=== PATIENT | female | born 2000 | race Caucasian/White ===

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

== ENCOUNTER 2020-01-22 22:37 | Emergency (ER) | payer OTHER, SELFPAY ==
[2020-01-22 22:49] VITALS: BP 146/95; PULSE 86; RESP 18; O2SAT 98; BMI 39.4
--- NOTE | 2020-01-22 23:03 | CT_ITS ---
PROCEDURE: CT CERVICAL SPINE WO CON CLINICAL INDICATION: neck/shoulder pain Neck and shoulder pain COMPARISON: No exams were available for comparison TECHNIQUE: Axial images obtained with sagittal and coronal reformats. All CT scans at the facility use one or more dose reduction, viz: automated exposure control, ma/kV adjustment per patient size (including targeted exams where dose is matched to indication, i.e. head), or iterative reconstruction technique. Axial spiral CT scanning performed of the cervical spine beginning at the base of the skull and continuing to the upper T-spine. 3-D multiplanar reconstruction with 3-D manipulation of volumetric data set in image rendering was completed by the radiologist and/or technologist with the supervision of the radiologist on independent workstation. FINDINGS: No fracture nor subluxation is evident. Normal prevertebral soft tissues. Facets, neural foramen and vertebral bodies intact and unremarkable. Normal C1/C2 relationships. Apices of lungs are clear with no acute findings.There is straightening/reversal of the normal lordosis which may be due to patient positioning or muscle spasm.. Scattered small nodes are present in the neck IMPRESSION: Cervical spine intact with no fracture nor subluxation. Nonspecific straightening/slight reversal cervical lordosis Dictated by: Óscar Hernandez MD 01/23/2020 06:00 Óscar Hernandez MD in [place] 01/23/2020 06:00
--- NOTE | 2020-01-22 23:18 | HMH.EDGENADL ---
ED Disposition Clinical Impression: Trapezius strain Qualifiers: Encounter type: initial encounter Laterality: unspecified laterality Qualified Code(s): S46.819A - Strain of other muscles, fascia and tendons at shoulder and upper arm level, unspecified arm, initial encounter Disposition: Home, Self-Care Condition on Discharge: Good Instructions: DI for Acute Pain -- Adult Additional Instructions: use meds and call pcp about therapy Prescriptions: Meloxicam [Mobic 15 mg tab] 15 mg PO DAILY #7 tab Transmission Status: Pending to [facility] Tizanidine HCl [Zanaflex 4mg tab] 4 mg PO TID #15 tab Transmission Status: Pending to [facility] Referrals: Mike Block APRN [Primary Care Provider] - - Critical Care Critical Care Time: No Attestation: On 01/22/20, the high probability of a clinically significant, sudden or life threatening deterioration of the following system(s) required my full and direct attention, intervention and personal management. The time I documented below is in addition to time spent performing reported procedures but includes the following listed in this critical care notation. Medical Decision Making - Medical Records Medical records reviewed: Yes: I reviewed the patient's medical records. - Dariusz Inquiry Pt receiving controlled substance: No Vital Signs: 01/22/20 22:49 01/22/20 23:27 Pulse Rate [Right Brachial] 86 80 Respiratory Rate 18 18 Blood Pressure [Right Arm] 146/95 H 140/80 Blood Pressure Mean [Right Arm] 112 100 Blood Pressure Source [Right Arm] Automatic Cuff Automatic Cuff Blood Pressure Position [Right Arm] Sitting Sitting 02 Sat by Pulse Oximetry 98 98 Oxygen Delivery Method Room Air Room Air - Lab Data Lab results reviewed: Yes: I reviewed the patient's lab results. Orders (Tests/Meds): ORDERS Category Date Time Status CT cervical spine wo con Stat Cat Scan 01/22/20 23:03 Taken - CT Data CT Scan: C-Spine Time Received: 23:[address] Reviewed: Yes: I have viewed the radiologist's interpretation Preliminary Findings: No Fracture Seen General Adult HPI - General Chief complaint: PAIN Stated complaint: shoulder, neck pain Time Seen by Provider: 01/22/20 23:18 Mode of Arrival: Ambulatory Source of Information: Patient, Medical Record Limitations: No Limitations Description of Symptoms (Recalled from ER Triage Doc. by RN): Patient reports pain that starts from the bottom of her shoulder blades and goes up into her neck. Patient reports the pain started about a week ago and no known injuries. Had not consulted pcp. - History of Present Illness HPI narrative: over the last week has ongoing pain in trapezius area with no fever/rash or trauma - no ant chest pain Onset (ago): day(s) Location: back Severity: moderate Quality: dull, constant Consistency: constant Associated symptoms: denies other symptoms Treatments prior to arrival: none - Related Data Previous Rx's Medication Instructions Recorded ferrous sulfate 325 mg (65 mg 325 mg PO DAILY #90 tab 09/18/19 iron) tablet hydrochlorothiazide 12.5 mg tablet 12.5 mg PO DAILY #90 tab 09/18/19 quetiapine 50 mg tablet 50 mg PO QHS #30 tab 12/25/19 Meloxicam [Mobic 15 mg tab] 15 mg PO DAILY #7 tab 01/22/20 Tizanidine HCl [Zanaflex 4mg 4 mg PO TID #15 tab 01/22/20 tab] Allergies Allergy/AdvReac Type Severity Reaction Status Date / Time No Known Allergies Allergy Verified 11/02/19 09:[address] [facility] History - Hepatitis A Screen Drug use history?: No High risk sexual behaviors?: No History of sexually transmitted infection?: No Currently employed?: No Childcare worker?: No Do you have indoor plumbing?: Yes Do you have electricity?: Yes Attestation statement:: This patient has been screened for Hepatitis A risk factors. I have reviewed the patient's past medical history: Yes Medical History: Reports:: Hypertension Other Medical History: Reports: Anem
[2020-01-22 23:27] VITALS: BP 140/80; PULSE 80; RESP 18; O2SAT 98
[2020-01-23 00:02] VITALS: BP 142/87; PULSE 78; RESP 17; TEMP 36.6; O2SAT 99
== END 2020-01-23 00:26 | disposition home or self-care (01) ==
PROVIDERS: Emergency Provider Emergency Medicine; PCP Nurse Practitioner Family
DX: S46.811A Strain of other muscles, fascia and tendons at shoulder and upper arm level, right arm, initial encounter (principal); S46.812A Strain of other muscles, fascia and tendons at shoulder and upper arm level, left arm, initial encounter; F17.210 Nicotine dependence, cigarettes, uncomplicated
CPT/HCPCS: 72125; 99282

== ENCOUNTER → 2020-02-21 14:13 | Outpatient (CLI) | payer OTHER, SELFPAY ==
[2020-02-21 15:00] LABS: Basophils % 0.6 % (0.1-2.0); Eosinophils # 0.2 K/mm3 (0.0-0.4); Eosinophils % 2.7 % (0.1-12.0); Hematocrit 40.7 % (37.0-47.0); Hemoglobin 14.6 g/dL (12.2-16.2); Lymphocytes # 2.2 K/mm3 (0.7-4.5); Lymphocytes % 33.5 % (10-50); Mean Corpuscular Hemoglobin 30.7 pg (27.0-31.2); Mean Corpuscular Volume 85.3 fl (81-99); Mean Platelet Volume 9.8 fl (7.4-10.4); Monocytes # 0.4 K/mm3 (0.1-1.0); Monocytes % 6.3 % (1.7-9.3); Neutrophils # 3.8 K/mm3 (1.8-7.8); Platelet Count 194 K/mm3 (142-424); Red Blood Count 4.77 M/mm3 (4.20-5.40); Red Cell Distribution Width 12.9 % (11.5-17.5); White Blood Count 6.7 K/mm3 (4.5-13.0)
[2020-02-21 15:08] LABS: Iron 80 ug/dL (37-170)
[2020-02-21 15:17] LABS: Total Iron Binding Capacity 341 ug/dL (265-497)
[2020-02-21 15:44] LABS: Ferritin 40.3 ng/ml (6.24-137)
== END ==
PROVIDERS: Visit Provider Internal Medicine Medical Oncology
DX: D50.0 Iron deficiency anemia secondary to blood loss (chronic) (principal)
CPT/HCPCS: 36415; 82728; 83540; 83550; 85025

== ENCOUNTER 2020-03-14 14:53 | Emergency (ER) | payer OTHER, SELFPAY ==
[2020-03-14 15:09] VITALS: BP 149/98; PULSE 76; RESP 20; TEMP 36.9; O2SAT 97; BMI 43.7
--- NOTE | 2020-03-14 15:13 | HMH.EDUTC ---
[facility] [place] Clinical Impression: Sinusitis Qualifiers: Sinusitis location: unspecified location Chronicity: unspecified Qualified Code(s): J32.9 - Chronic sinusitis, unspecified Disposition: Home, Self-Care Condition on Discharge: Good Instructions: Sore Throat, Sinusitis, Sinus Headache, DI for Sinusitis Additional Instructions: *Monitor Temp, Over the counter Motrin or Tylenol as directed/as needed Tylenol every 4 hours and Motrin every 6 hours (as long as your family doctor has told you that you can take it) for fever or pain. and straight to ER if unable to lower temp less than 101.0 after medication given *Warm salt water gargles may help to soothe the throat *Throat Lozenges *Warm fluids like tea with honey may help to soothe the throat *Sleep elevated *Humidifier/Vaporizer *Flonase 2 sprays in each nostril daily but be aware that it may take 2-3 days before you notice improvement Your throat swab was sent for culture. Those results are typically sent to your primary care. Be sure to follow up in 2-3 days with your family doctor/primary care physician if no improvement so they can review those result and treat if necessary. If you don?t have a primary care doctor, I recommend you get one but in the mean time, you will have to return to a walk in clinic Follow up IMMEDIATELY for new or worsening symptoms or no Noticeable improvement over the next 48-72 hours. 911 for difficulty breathing or swallowing Prescriptions: Amoxicillin/Potassium Clav [Augmentin 875-125 Tablet] 1 tab PO Q12H 7 Days #14 tab Transmission Status: Received by [facility] Fluticasone Propionate [Flonase 50mcg nasal spray 16gm] 1 - 2 spr NS DAILY #1 bottle Transmission Status: Received by [facility] Referrals: Augustine Lott MD [Primary Care Provider] - As needed Time of Disposition: 15:39 Medical Decision Making - Dariusz Inquiry Pt receiving controlled substance: No Dariusz was queried for this patient: No Vital Signs: 03/14/20 15:09 03/14/20 15:43 Temperature 98.4 F 98.4 F Temperature Source Oral Pulse Rate 76 Pulse Rate [Right Brachial] 76 Respiratory Rate 20 20 Blood Pressure 149/98 H Blood Pressure [Right Arm] 149/98 H Blood Pressure Mean [Right Arm] 115 Blood Pressure Source [Right Arm] Automatic Cuff Blood Pressure Position [Right Arm] Sitting 02 Sat by Pulse Oximetry 97 Oxygen Delivery Method Room Air - Lab Data Lab results reviewed: Yes: I reviewed the patient's lab results. [facility] [place] HPI - General Stated complaint: sinus infection Time Seen by Provider: 03/14/20 15:13 Mode of Arrival: Ambulatory Source of Information: Patient Limitations: No Limitations Description of Symptoms (Recalled from Triage Doc. by RN): PATIENT C/O NASAL CONGESTION AND SORE THROAT X 2 DAYS. DENIES FEVER OR ANY SICK CONTACTS HEENT Symptoms (Recalled from RN notes): No Resp Symptoms (Recalled from RN notes): No Skin Symptoms (Recalled from RN notes): No MS Symptoms (Recalled from RN notes): No Functional Status (Recalled from RN notes): WNL - History of Present Illness Provider Complaint: Patient states that she has been having sinus pain and pressure along with sore throat for about a week that has not improved States that today she was feeling worse so she came in to get checked Denies exposure to COVID - Related Data Home Medications Medication Instructions Recorded Confirmed Ferrous Sulfate 325 mg PO DAILY 03/14/20 03/14/20 Quetiapine Fumarate 50 mg PO QHS 03/14/20 03/14/20 hydroCHLOROthiazide 12.5 mg PO DAILY 03/14/20 03/14/20 [Hydrochlorothiazide 12.5mg Tab] Previous Rx's Medication Instructions Recorded Amoxicillin/Potassium Clav 1 tab PO Q12H 7 Days #14 tab 03/14/20 [Augmentin 875-125 Tablet] Fluticasone Propionate [Flonase 1 - 2 spr NS DAILY #1 bottle 03/14/20 50mcg nasal spray 16gm] Allergies Allergy/AdvReac Type Severity Reaction Status Date / Time No Known [place]
[2020-03-14 15:43] VITALS: BP 149/98; PULSE 76; RESP 20; TEMP 36.9; O2SAT 97
[2020-03-14 21:13] LABS: UTC Strep Screen (Rapid) Negative (Negative)
== END 2020-03-14 15:45 | disposition home or self-care (01) ==
PROVIDERS: Emergency Provider Nurse Practitioner; PCP Emergency Medicine
DX: J32.9 Chronic sinusitis, unspecified (principal); F17.210 Nicotine dependence, cigarettes, uncomplicated
CPT/HCPCS: 87880; 99201

== ENCOUNTER 2020-04-27 11:03 | Emergency (ER) | payer OTHER, SELFPAY ==
[2020-04-27 11:09] VITALS: BP 146/104; PULSE 93; RESP 17; TEMP 36.8; O2SAT 100; BMI 39.4
--- NOTE | 2020-04-27 11:23 | HMH.EDABDPAI ---
ED Disposition Clinical Impression: Abdominal pain Qualifiers: Abdominal location: left upper quadrant Qualified Code(s): R10.12 - Left upper quadrant pain Nausea and vomiting Qualifiers: Vomiting type: unspecified Vomiting Intractability: non-intractable Qualified Code(s): R11.2 - Nausea with vomiting, unspecified Disposition: Home, Self-Care Condition on Discharge: Good Instructions: DI for Acute Abdomen Prescriptions: Ondansetron [Zofran 4mg ODT] 4 mg PO Q6HP PRN #30 tab.rapdis PRN Reason: Nausea Transmission Status: Pending to [facility] Dicyclomine HCl [Bentyl 10mg capsule] 10 mg PO Q8HP PRN #30 cap PRN Reason: abdominal pain Transmission Status: Pending to [facility] Referrals: Augustine Lott MD [Primary Care Provider] - - Critical Care Critical Care Time: No Attestation: On 04/27/20, the high probability of a clinically significant, sudden or life threatening deterioration of the following system(s) required my full and direct attention, intervention and personal management. The time I documented below is in addition to time spent performing reported procedures but includes the following listed in this critical care notation. Medical Decision Making - Medical Records Medical records reviewed: Yes: I reviewed the patient's medical records. - Dariusz Inquiry Pt receiving controlled substance: No Vital Signs: 04/27/20 11:09 Temperature 98.2 F Temperature Source Oral Pulse Rate [Right Radial] 93 H Respiratory Rate 17 Blood Pressure [Right Arm] 146/104 H Blood Pressure Mean [Right Arm] 118 02 Sat by Pulse Oximetry 100 - Lab Data Lab results reviewed: Yes: I reviewed the patient's lab results. Lab Results 04/27/20 11:27: WBC 7.6, RBC 5.03, Hgb 14.5, Hct 42.7, MCV 85.0, MCH 28.9, MCHC 34.0, RDW 13.8, Plt Count 227, MPV 8.9, Neut % (Auto) 65.3, Lymph % (Auto) 27.6, [place] % (Auto) 4.1, Eos % (Auto) 1.8, Baso % (Auto) 1.1, Neut # (Auto) 5.0, Lymph # (Auto) 2.1, [place] # (Auto) 0.3, Eos # (Auto) 0.1, Baso # (Auto) 0.1 04/27/20 11:27: Sodium 139, Potassium 4.0, Chloride 100, Carbon Dioxide 29, Anion Gap 14.0, BUN 12, Creatinine 0.80, Estimated Creat Clear 186, Estimated GFR 92, Est GFR ( Amer) 112, Glucose 103 H, Calcium 10.0, Total Bilirubin 0.4, AST 27, ALT 22, Alkaline Phosphatase 138 H, Total Protein 8.1, Albumin 4.8, Globulin 3.3 H, Albumin/Globulin Ratio 1.5, Amylase 75, Lipase 75 04/27/20 11:27: Serum HCG, Qual Negative 04/27/20 12:38: Urine Color Yellow, Urine Appearance Clear, Urine pH 6.0, Ur Specific [place] >= 1.030, Urine Protein 1+, Urine Glucose (UA) Negative, Urine Ketones Negative, Urine Blood Negative, Urine Nitrate Negative, Urine Bilirubin Negative, Urine Urobilinogen 0.2, Ur Leukocyte Esterase Negative, Urine RBC Occasional, Urine WBC 3-5, Ur Squamous Epith Cells 3-5 04/27/20 12:38: Urine HCG, Qual Negative Result diagrams: 04/27/20 11:27 04/27/20 11:27 Orders (Tests/Meds): ED MEDICATIONS Generic Name Dose Route Start Last Admin Trade Name Freq PRN Reason Stop Dose Admin Sodium Chloride 1,000 mls @ 999 mls/hr 04/27/20 11:30 04/27/20 11:23 Sod Chlor 0.9% 1000ml Bag IV 04/27/20 12:30 999 mls/hr .Q1H1M SYBIL Administration Discontinued Medications Generic Name Dose Route Start Last Admin Trade Name Freq PRN Reason Stop Dose Admin Dicyclomine HCl 20 mg 04/27/20 11:23 04/27/20 11:25 Dicyclomine 20 Mg/2ml Vial IM 04/27/20 11:24 20 mg ONCE ONE Administration Iopamidol 75 ml 04/27/20 13:16 04/27/20 13:17 Iopamidol-370 (76%);100ml Bottle IV 04/27/20 13:17 75 ml ONCE ONE Administration Ketorolac Tromethamine 30 mg 04/27/20 11:23 04/27/20 11:25 Ketorolac 30mg/Ml Vial IV 04/27/20 11:24 30 mg ONCE ONE Administration Ondansetron HCl 4 mg 04/27/20 11:20 04/27/20 11:23 Ondansetron 4mg/2ml Vial IV 04/27/20 11:21 4 mg ONCE ONE Administration Sodium Chloride 10 ml 04/27/20 13:16 04/27/20 13:
[2020-04-27 11:38] LABS: Basophils # 0.1 K/mm3 (0-0.2); Basophils % 1.1 % (0.1-2.0); Eosinophils # 0.1 K/mm3 (0.0-0.4); Eosinophils % 1.8 % (0.1-12.0); Hematocrit 42.7 % (37.0-47.0); Hemoglobin 14.5 g/dL (12.2-16.2); Lymphocytes # 2.1 K/mm3 (0.7-4.5); Lymphocytes % 27.6 % (10-50); Mean Corpuscular Hemoglobin 28.9 pg (27.0-31.2); Mean Platelet Volume 8.9 fl (7.4-10.4); Monocytes # 0.3 K/mm3 (0.1-1.0); Monocytes % 4.1 % (1.7-9.3); Neutrophils % 65.3 % (37.0-80.0); Platelet Count 227 K/mm3 (142-424); Red Blood Count 5.03 M/mm3 (4.20-5.40); Red Cell Distribution Width 13.8 % (11.5-17.5); White Blood Count 7.6 K/mm3 (4.5-13.0)
[2020-04-27 11:42] LABS: Chloride 100 mmol/L (98-107); Sodium 139 mmol/L (136-145)
[2020-04-27 11:44] LABS: Amylase 75 U/L (30-110); Blood Urea Nitrogen 12 mg/dl (7-17); Creatinine Clearance Estimated 186 mL/min (50-200); Estimated Glomerular Filt Rate 92 ml/min (>60); GFR (African American) 112 ML/MIN (>60)
[2020-04-27 11:45] LABS: Alanine Aminotransferase 22 U/L (12-78); Albumin Level 4.8 g/dl (3.5-5.0); Albumin/Globulin Ratio 1.5 (1.1-1.8); Alkaline Phosphatase 138 U/L (38-126); Aspartate Amino Transferase 27 U/L (14-36); Bilirubin,Total 0.4 mg/dl (0.2-1.3); Carbon Dioxide 29 mmol/L (22.0-30.0); Globulin 3.3 g/dL (1.3-3.2); Glucose 103 mg/dl (74-100); Lipase 75 U/L (23-300); Total Protein,Serum 8.1 g/dl (6.3-8.2)
[2020-04-27 12:30] LABS: HCG Qualitative, Serum Negative (Negative)
--- NOTE | 2020-04-27 12:36 | CT_ITS ---
PROCEDURE: CT ABDOMEN PELVIS W CON CLINICAL INDICATION: LUQ pain COMPARISON: No exams were available for comparison TECHNIQUE: IV Contrast: 75ML OPTIRAY 350 Oral Contrast none given Axial images obtained with sagittal and coronal reformats. All CT scans at the facility use one or more dose reduction, viz: automated exposure control, ma/kV adjustment per patient size (including targeted exams where dose is matched to indication, i.e. head), or iterative reconstruction technique. FINDINGS: Lower thorax: The lower lung soares are clear and there is no pleural fluid. ABDOMEN: Liver: No masses or biliary dilatation. Gallbladder: Nondistended. No radio opaque stones. Pancreas: No masses or peripancreatic fluid collections. Spleen: Borderline splenomegaly with no focal lesions. Adrenals: unremarkable Kidneys/ureters: The kidneys are normal in size and show symmetrical function with both appearing normal. ABDOMEN & PELVIS: Stomach bowel: The stomach duodenal sweep and small bowel appear grossly normal. The appendix is normal in and there are no pericecal inflammatory changes. There is moderate stool and gas seen in the ascending and transverse colon. The descending and sigmoid colon are decompressed. The rectum is normal. Peritoneum: No abnormal fluid collections. No obvious inflammatory changes. No free air. Lymph nodes: No enlarged lymph nodes apparent. Vasculature: No evidence of abdominal aortic aneurysm. No retroperitoneal hemorrhage evident. Bones: No acute fracture PELVIS: The uterus is normal in size and in the midline. Reproductive: The urinary bladder is is partially decompressed but otherwise appears normal. There is no free fluid in the pelvis. Nondistended. No obvious stones or masses. Appendix: Not definitely visualized but there are no findings to suggest appendicitis. IMPRESSION: Mild or borderline splenomegaly, no acute intra-abdominal or pelvic pathology identified Dictated by: Dr. Dieter Loyd MD 04/28/2020 07:40 Dr. Dieter Loyd MD in [place] 04/28/2020 07:40
[2020-04-27 12:43] LABS: Microscopic, Urine URINE MICROSCOPIC (MICROSCOPIC)
[2020-04-27 12:45] LABS: Appearance,Urine CLEAR (Clear); Bilirubin,Urine Negative (Negative); Blood, Urine Negative (Negative); Color,Urine YELLOW (Yellow); Glucose,Urine (UA) Negative (Negative); Ketones,Urine Negative (Negative); Leukocyte Esterase,Urine Negative (Negative); Nitrate,Urine Negative (Negative); Protein,Urine 1+ (Negative); Specific Gravity, Urine >= 1.030 (1.005-1.030); Urobilinogen,Urine 0.2 EU/dl (0.2)
[2020-04-27 12:49] LABS: Urine Pregnancy, HCG Qual. Negative (Negative)
[2020-04-27 12:50] LABS: RBC,Urine Occasional #/hpf (0-3)
[2020-04-27 14:27] VITALS: BP 130/85; PULSE 85; RESP 15; TEMP 36.8; O2SAT 98
== END 2020-04-27 14:29 | disposition home or self-care (01) ==
PROVIDERS: Emergency Provider Emergency Medicine; PCP Emergency Medicine
DX: R10.12 Left upper quadrant pain (principal); R11.2 Nausea with vomiting, unspecified; I10 Essential (primary) hypertension; Z79.899 Other long term (current) drug therapy
CPT/HCPCS: 74177; 80053; 81001; 81025; 82150; 83690; 84703; 85025; 96365; 96372; 96375; 99283; J2405; Q9967

== ENCOUNTER → 2020-06-10 10:51 | Outpatient (CLI) | payer OTHER, SELFPAY ==
[2020-06-10 11:17] LABS: Basophils # 0.1 K/mm3 (0-0.2); Eosinophils # 0.2 K/mm3 (0.0-0.4); Eosinophils % 2.1 % (0.1-12.0); Hematocrit 43.3 % (37.0-47.0); Hemoglobin 14.7 g/dL (12.2-16.2); Lymphocytes # 2.8 K/mm3 (0.7-4.5); Lymphocytes % 36.1 % (10-50); Mean Corpuscular Hemoglobin 28.7 pg (27.0-31.2); Mean Corpuscular Volume 84.2 fl (81-99); Mean Platelet Volume 9.1 fl (7.4-10.4); Monocytes # 0.4 K/mm3 (0.1-1.0); Monocytes % 4.9 % (1.7-9.3); Neutrophils # 4.3 K/mm3 (1.8-7.8); Neutrophils % 55.8 % (37.0-80.0); Platelet Count 219 K/mm3 (142-424); Red Blood Count 5.14 M/mm3 (4.20-5.40); Red Cell Distribution Width 13.9 % (11.5-17.5); White Blood Count 7.7 K/mm3 (4.5-13.0)
[2020-06-10 12:13] LABS: Thyroid Stimulating Hormone 4.69 uIU/mL (0.465-4.68)
[2020-06-11 11:17] LABS: Progesterone 0.4 ng/mL (.)
== END ==
PROVIDERS: Visit Provider Obstetrics & Gynecology
DX: N92.6 Irregular menstruation, unspecified (principal); R09.89 Other specified symptoms and signs involving the circulatory and respiratory systems
CPT/HCPCS: 36415; 84144; 84443; 85025

== ENCOUNTER 2020-06-11 13:06 | Emergency (ER) | payer OTHER, SELFPAY ==
[2020-06-11 13:50] VITALS: BP 167/111; PULSE 77; RESP 20; TEMP 37.3; O2SAT 97; BMI 41.1
--- NOTE | 2020-06-11 14:16 | HMH.EDUTC ---
[facility] [place]: Strep [place] Disposition: Home, Self-Care Condition on Discharge: Good Instructions: Strep Throat (Alternative Therapy), DI for Strep Throat, Amoxicillin Additional Instructions: Monitor Temp, Over the counter Motrin or Tylenol as directed/as needed Tylenol every 4 hours and Motrin every 6 hours (as long as your family doctor has told you that you can take it) for fever or pain. and straight to ER if unable to lower temp less than 101.0 after medication given *Warm salt water gargles may help to soothe the throat *Throat Lozenges *Warm fluids like tea with honey may help to soothe the throat *Sleep elevated *Humidifier/Vaporizer *If you did not take Penicillin shot or was unable to, start taking antibiotic immediately and make sure that you take it for the FULL length of time although you should start to feel better in 24-48 hours *change toothbrush and toothpaste 24-48 hours after starting to take antibiotics so you do not reinfect yourself Monitor Temp. Tylenol and/or Ibuprofen as needed. ER if fever is no less than 101 despite alternating Tylenol and Ibuprofen * Encourage fluids, water, Gatorade, powerade, pedialyte if infant/toddler/or child *Cold fluids, popsicles and ice cream may feel good on his throat Follow up IMMEDIATELY for new or worsening symptoms or no Noticeable improvement over the next 48-72 hours. 911 for difficulty breathing or swallowing You were tested for today for COVID19 your test result should be back in the next 24-48 hours, you may call to the [facility] to see if your test results are back in the next 48 hours [phone] [facility] hours are 9am-9pm You was given a handout with instructions for Self Quarantine and Self isolation for while you wait on test results and what to do if they are positive If you are positive the Health Dept will be contacting you also Prescriptions: Amoxicillin [Amoxicillin 500mg Cap] 500 mg PO BID 10 Days #20 cap Transmission Status: Received by [facility] Referrals: Augustine Lott MD [Primary Care Provider] - Time of Disposition: 14:23 Medical Decision Making - Dariusz Inquiry Pt receiving controlled substance: No Dariusz was queried for this patient: No Vital Signs: 06/11/20 13:50 06/11/20 14:23 Temperature 99.2 F 99.2 F Temperature Source Oral Pulse Rate 77 Pulse Rate [Right Brachial] 77 Respiratory Rate 20 20 Blood Pressure 167/111 H Blood Pressure [Right Arm] 167/111 H Blood Pressure Mean [Right Arm] 129 Blood Pressure Source [Right Arm] Automatic Cuff Blood Pressure Position [Right Arm] Sitting 02 Sat by Pulse Oximetry 97 Oxygen Delivery Method Room Air - Lab Data Lab results reviewed: Yes: I reviewed the patient's lab results. Medical Decision Narrative: Patients blood pressure elevated patient advised that she needed to do a follow up with her PCP for further evaluation and recheck [facility] [place] - General Stated complaint: Possible strep Time Seen by Provider: 06/11/20 14:16 Mode of Arrival: Ambulatory Source of Information: Patient Limitations: No Limitations Description of Symptoms (Recalled from Triage Doc. by RN): PATIENT C/O SORE THROAT AND NASAL CONGESTION X 2 DAYS HEENT Symptoms (Recalled from RN notes): No Resp Symptoms (Recalled from RN notes): No Skin Symptoms (Recalled from RN notes): No MS Symptoms (Recalled from RN notes): No Functional Status (Recalled from RN notes): WNL - History of Present Illness Provider Complaint: Patient states that she has a history of strep throat States that she feels like she may have strep again States that she has been having sore throat, runny nose and over all not feeling well States that she come in to get tested for Strep throat - Related Data Home Medications Medication Instructions Recorded Confirmed Ferrous Sulfate 325 mg PO DAILY 03/14/20 06/11/20 hydroCHLOROthiazide 12.5 mg PO DAILY 03/14/20 06/11/20 [Hydrochlorothiazide
[2020-06-11 14:23] VITALS: BP 167/111; PULSE 77; RESP 20; TEMP 37.3; O2SAT 97
[2020-06-11 21:08] LABS: UTC Pregnancy Test, Urine Negative (Negative); UTC Strep Screen (Rapid) Positive (Negative)
== END 2020-06-11 14:27 | disposition home or self-care (01) ==
PROVIDERS: Emergency Provider Nurse Practitioner; PCP Emergency Medicine
DX: J02.0 Streptococcal pharyngitis (principal); I10 Essential (primary) hypertension; Z87.891 Personal history of nicotine dependence
CPT/HCPCS: 81025; 87880; 99202; G0463

== ENCOUNTER 2020-06-18 13:27 | Emergency (ER) | payer OTHER, SELFPAY ==
[2020-06-18 13:27] VITALS: BP 175/113; PULSE 77; RESP 14; TEMP 36.4; O2SAT 100; BMI 39.3
--- NOTE | 2020-06-18 14:03 | HMH.EDUTC ---
[facility] [place] Disposition Clinical Impression: Nausea and vomiting Qualifiers: Vomiting type: unspecified Vomiting Intractability: non-intractable Qualified Code(s): R11.2 - Nausea with vomiting, unspecified Disposition: Home, Self-Care Condition on Discharge: Good Instructions: DI for Vomiting -- Adult Additional Instructions: Drink plenty of fluids. Take tylenol for pain or fever. Return if you begin to have difficulty breathing. Follow up with your regular doctor. GO TO THE ER FOR ANY WORSENING SYMPTOMS Prescriptions: Ondansetron [Zofran 4mg ODT] 4 mg PO Q8HP PRN #20 tab.rapdis PRN Reason: Nausea Transmission Status: Received by [id number] Referrals: Augustine Lott MD [Primary Care Provider] - Time of Disposition: 14:32 Medical Decision Making - Medical Records Medical records reviewed: No: I reviewed the patient's medical records. - Dariusz Inquiry Pt receiving controlled substance: No Vital Signs: 06/18/20 13:27 06/18/20 14:37 Temperature 97.5 F L 97.5 F L Temperature Source Oral Oral Pulse Rate 77 Pulse Rate [Right] 77 Respiratory Rate 14 14 Blood Pressure 175/113 H Blood Pressure [Right Arm] 175/113 H Blood Pressure Mean [Right Arm] 133 02 Sat by Pulse Oximetry 100 - Lab Data Lab Results 06/18/20 14:20: Urine Color Yellow, Urine Appearance Clear, Urine pH 6.0, Ur Specific [place] >= 1.030, Urine Protein 2+, Urine Glucose (UA) Negative, Urine Ketones Negative, Urine Blood Negative, Urine Nitrate Negative, Urine Bilirubin Negative, Urine Urobilinogen 0.2, Ur Leukocyte Esterase Negative, Tst Clinic Negative [facility] [place] HPI - General Stated complaint: vomiting Time Seen by Provider: 06/18/20 14:03 Description of Symptoms (Recalled from Triage Doc. by RN): pt c/o N/V X 2 days HEENT Symptoms (Recalled from RN notes): No Resp Symptoms (Recalled from RN notes): No Skin Symptoms (Recalled from RN notes): No MS Symptoms (Recalled from RN notes): No Functional Status (Recalled from RN notes): wl - History of Present Illness Provider Complaint: She states that for the past 2 days she has had nausea/vomiting. She denies abdominal pain, but she does have some abdominal soreness after vomiting so much. She denies any fever/chills/body aches/cough/and congestion. - Related Data Home Medications Medication Instructions Recorded Confirmed Ferrous Sulfate 325 mg PO DAILY 03/14/20 06/11/20 hydroCHLOROthiazide 12.5 mg PO DAILY 03/14/20 06/11/20 [Hydrochlorothiazide 12.5mg Tab] Previous Rx's Medication Instructions Recorded Amoxicillin [Amoxicillin 500mg 500 mg PO BID 10 Days #20 cap 06/11/20 Cap] lurasidone 40 mg tablet 40 mg PO DAILY #30 tab 06/14/20 Ondansetron [Zofran 4mg ODT] 4 mg PO Q8HP PRN #20 tab.rapdis 06/18/20 Allergies Allergy/AdvReac Type Severity Reaction Status Date / Time No Known Allergies Allergy Verified 06/14/20 11:11 - Worker's Comp Is this a Worker's Comp case?: No Is this an H Worker's Comp?: No Is this a [place] Worker's Comp?: No [facility] History - Hepatitis A Screen Drug use history?: No High risk sexual behaviors?: No History of sexually transmitted infection?: No Currently employed?: No Childcare worker?: No Do you have indoor plumbing?: Yes Do you have electricity?: Yes Attestation statement:: This patient has been screened for Hepatitis A risk factors. I have reviewed the patient's past medical history: Yes Medical History: Reports:: Hypertension Denies:: Diabetes Mellitus Type 1, Diabetes Mellitus Type 2 Other Medical History: Reports: Anemia Other Surgeries: Yes: No Previous Surgery Amputation: No Fractures: No - Social History Smoking Status: Former smoker Tobacco Type: cigarettes # Packs/Day (cigarettes): 0 Alcohol Intake: never Alcohol Intake Frequency:: holidays/special occasions only Substance Use Type: denies use Occupational Status: other Housing: house [facility]
[2020-06-18 14:37] VITALS: BP 175/113; PULSE 77; RESP 14; TEMP 36.4; O2SAT 100
[2020-06-18 14:54] LABS: Apearance,Urine Clear (Clear); Bilirubin,Urine Negative (Negative); Blood, Urine Negative (Negative); Color,Urine Yellow (Yellow); Glucose,Urine (UA) Negative (Negative); Ketones,Urine Negative (Negative); Protein,Urine 2+ (Negative); Specific Gravity, Urine >= 1.030 (1.005-1.030); Urobilinogen,Urine 0.2 EU/dl (0.2)
[2020-06-18 14:55] LABS: UTC Leukocyte Esterase,Urine Negative (Negative); UTC Nitrate,Urine Negative (Negative); UTC Pregnancy Test, Urine Negative (Negative)
== END 2020-06-18 14:39 | disposition home or self-care (01) ==
PROVIDERS: Emergency Provider Nurse Practitioner Family; PCP Emergency Medicine
DX: R11.2 Nausea with vomiting, unspecified (principal); I10 Essential (primary) hypertension; Z87.891 Personal history of nicotine dependence
CPT/HCPCS: 81003; 81025; 99202; G0463

== ENCOUNTER 2020-07-05 19:37 | Emergency (ER) | payer OTHER, SELFPAY ==
[2020-07-05 19:50] VITALS: BP 153/102; PULSE 85; RESP 14; TEMP 36.2; O2SAT 99; BMI 34.3
--- NOTE | 2020-07-05 20:20 | HMH.EDUTC ---
[facility] [place] Disposition Clinical Impression: Exposure to COVID-19 virus Disposition: Home, Self-Care Condition on Discharge: Good Instructions: DI for COVID-19 (Suspected or Confirmed ), Preventing the Spread of Coronavirus Discharge Instructions Additional Instructions: Drink plenty of fluids. Take tylenol for pain or fever. Return if you begin to have difficulty breathing. Follow up with your regular doctor. GO TO THE ER FOR ANY WORSENING SYMPTOMS Referrals: Augustine Lott MD [Primary Care Provider] - Time of Disposition: 20:22 Medical Decision Making - Medical Records Medical records reviewed: No: I reviewed the patient's medical records. - Dariusz Inquiry Pt receiving controlled substance: No Vital Signs: 07/05/20 19:50 07/05/20 20:23 Temperature 97.1 F L 97.1 F L Temperature Source Oral Pulse Rate 85 Pulse Rate [Right Brachial] 85 Respiratory Rate 14 14 Blood Pressure 153/102 H Blood Pressure [Right Arm] 153/102 H Blood Pressure Mean [Right Arm] 119 Blood Pressure Source [Right Arm] Automatic Cuff Blood Pressure Position [Right Arm] Sitting 02 Sat by Pulse Oximetry 99 Oxygen Delivery Method Room Air Orders (Tests/Meds): ORDERS Category Date Time Status Covid-19 Nasal PCR ([facility]) Routine Lab 07/05/20 19:40 Received [facility] [place] HPI - General Stated complaint: covid testing Time Seen by Provider: 07/05/20 20:20 Mode of Arrival: Ambulatory Source of Information: Patient Limitations: No Limitations Description of Symptoms (Recalled from Triage Doc. by RN): COVID TEST D/T EXPOSURE. C/O NAUSEA HEENT Symptoms (Recalled from RN notes): No Resp Symptoms (Recalled from RN notes): No Skin Symptoms (Recalled from RN notes): No MS Symptoms (Recalled from RN notes): No Functional Status (Recalled from RN notes): WNL - History of Present Illness Provider Complaint: She states that she was exposed to covid-19 today. She visited her grand ma, then found out that her grand ma had covid-19 afterwards. She denies any known injury. - Related Data Home Medications Medication Instructions Recorded Confirmed Ferrous Sulfate 325 mg PO DAILY 03/14/20 06/25/20 hydroCHLOROthiazide 12.5 mg PO DAILY 03/14/20 06/25/20 [Hydrochlorothiazide 12.5mg Tab] Previous Rx's Medication Instructions Recorded Amoxicillin [Amoxicillin 500mg 500 mg PO BID 10 Days #20 cap 06/11/20 Cap] lurasidone 40 mg tablet 40 mg PO DAILY #30 tab 06/14/20 Ondansetron [Zofran 4mg ODT] 4 mg PO Q8HP PRN #20 tab.rapdis 06/18/20 clomiphene citrate 50 mg tablet 50 mg PO DAILY 5 Days #5 tab 06/25/20 Allergies Allergy/AdvReac Type Severity Reaction Status Date / Time No Known Allergies Allergy Verified 06/25/20 10:21 - Worker's Comp Is this a Worker's Comp case?: No [facility] History - Hepatitis A Screen Drug use history?: No High risk sexual behaviors?: No History of sexually transmitted infection?: No Currently employed?: No Childcare worker?: No Do you have indoor plumbing?: Yes Do you have electricity?: Yes Attestation statement:: This patient has been screened for Hepatitis A risk factors. I have reviewed the patient's past medical history: Yes Medical History: Reports:: Hypertension Denies:: Diabetes Mellitus Type 1, Diabetes Mellitus Type 2 Other Medical History: Reports: Anemia Other Surgeries: Yes: No Previous Surgery Amputation: No Fractures: No - Social History Smoking Status: Former smoker Tobacco Type: cigarettes # Packs/Day (cigarettes): 0 Alcohol Intake: never Alcohol Intake Frequency:: holidays/special occasions only Substance Use Type: denies use Occupational Status: other Housing: house Household Members: significant other Family Hx:: Diabetes, Hypertension ROS Obtained: Yes All systems reviewed & no additional complaints - Constitutional Constitutional: Reports system reviewed and no additional complaints, except as docu - Eyes Eyes: Reports system revie
[2020-07-05 20:23] VITALS: BP 153/102; PULSE 85; RESP 14; TEMP 36.2; O2SAT 99
== END 2020-07-05 20:28 | disposition home or self-care (01) ==
PROVIDERS: Emergency Provider Nurse Practitioner Family; PCP Emergency Medicine
DX: Z20.822 Contact with and (suspected) exposure to COVID-19 (principal); R11.0 Nausea
CPT/HCPCS: 99202; G0463; U0003

== ENCOUNTER → 2020-07-17 10:09 | Outpatient (CLI) | payer OTHER, SELFPAY ==
[2020-07-18 14:15] LABS: Progesterone 0.8 ng/mL (.)
== END ==
PROVIDERS: Visit Provider Obstetrics & Gynecology
DX: N92.6 Irregular menstruation, unspecified (principal)
CPT/HCPCS: 36415; 84144

== ENCOUNTER 2020-08-13 13:51 | Emergency (ER) | payer OTHER, SELFPAY ==
[2020-08-13 14:00] VITALS: BP 158/91; PULSE 73; RESP 21; TEMP 37.1; O2SAT 100; BMI 44.6
--- NOTE | 2020-08-13 14:35 | HMH.EDUTC ---
[facility] [place] Disposition Clinical Impression: Left otitis media Qualifiers: Otitis media type: suppurative Chronicity: acute Recurrence: non-recurrent Spontaneous tympanic membrane rupture: without spontaneous rupture Qualified Code(s): H66.002 - Acute suppurative otitis media without spontaneous rupture of ear drum, left ear Migraine Qualifiers: Migraine type: unspecified Status migrainosus presence: without status migrainosus Intractability: not intractable Qualified Code(s): G43.909 - Migraine, unspecified, not intractable, without status migrainosus Disposition: Home, Self-Care Condition on Discharge: Good Instructions: Middle Ear Infection Additional Instructions: Drink plenty of fluids. Take tylenol for pain or fever. Return if you begin to have difficulty breathing. Follow up with your regular doctor. GO TO THE ER FOR ANY WORSENING SYMPTOMS Prescriptions: Amoxicillin/Potassium Clav [Augmentin 875-125 Tablet] 1 tab PO Q12H 10 Days #20 tab Transmission Status: Received by [id number] predniSONE [Deltasone 10mg tablet] 10 mg PO BID 3 Days #6 tab Transmission Status: Received by [id number] Referrals: Augustine Lott MD [Primary Care Provider] - Forms: Work/School Release Time of Disposition: 14:43 Medical Decision Making - Medical Records Medical records reviewed: No: I reviewed the patient's medical records. - Dariusz Inquiry Pt receiving controlled substance: No Vital Signs: 08/13/20 14:00 08/13/20 14:53 Temperature 98.7 F 98.7 F Temperature Source Oral Pulse Rate 73 Pulse Rate [Right Brachial] 73 Respiratory Rate 21 21 Blood Pressure 158/91 H Blood Pressure [Right Arm] 158/91 H Blood Pressure Mean [Right Arm] 113 Blood Pressure Source [Right Arm] Automatic Cuff Blood Pressure Position [Right Arm] Sitting 02 Sat by Pulse Oximetry 100 Oxygen Delivery Method Room Air - Lab Data Lab results reviewed: No: I reviewed the patient's lab results. [facility] [place] HPI - General Stated complaint: headache X 2 weeks, ear pressure Time Seen by Provider: 08/13/20 14:35 Mode of Arrival: Ambulatory Source of Information: Patient Limitations: No Limitations Description of Symptoms (Recalled from Triage Doc. by RN): PATIENT C/O MIGRAINE AND INTERMITTEN EAR PRESSURE X 2 WEEKS HEENT Symptoms (Recalled from RN notes): Yes Resp Symptoms (Recalled from RN notes): No Skin Symptoms (Recalled from RN notes): No MS Symptoms (Recalled from RN notes): No Functional Status (Recalled from RN notes): WNL - History of Present Illness Provider Complaint: She c/o left ear pain and pressure over the past 2 weeks. She has a history of migraines. She states that since her ear has been hurting she has had more migraine headaches. - Related Data Home Medications Medication Instructions Recorded Confirmed Lurasidone HCl [Latuda] 40 mg PO DAILY 08/13/20 08/13/20 Previous Rx's Medication Instructions Recorded Amoxicillin/Potassium Clav 1 tab PO Q12H 10 Days #20 tab 08/13/20 [Augmentin 875-125 Tablet] predniSONE [Deltasone 10mg tablet] 10 mg PO BID 3 Days #6 tab 08/13/20 Allergies Allergy/AdvReac Type Severity Reaction Status Date / Time No Known Allergies Allergy Verified 06/25/20 10:21 - Worker's Comp Is this a Worker's Comp case?: No [facility] History - Hepatitis A Screen Drug use history?: No High risk sexual behaviors?: No History of sexually transmitted infection?: No Currently employed?: No Childcare worker?: No Do you have indoor plumbing?: Yes Do you have electricity?: Yes Attestation statement:: This patient has been screened for Hepatitis A risk factors. I have reviewed the patient's past medical history: Yes Medical History: Reports:: Hypertension Denies:: Diabetes Mellitus Type 1, Diabetes Mellitus Type 2 Other Medical History: Reports: Anemia Other Surgeries: Yes: No Previous Surgery Amputation: No Fractures: No - Social History Smoking S
[2020-08-13 14:53] VITALS: BP 158/91; PULSE 73; RESP 21; TEMP 37.1; O2SAT 100
== END 2020-08-13 14:57 | disposition home or self-care (01) ==
PROVIDERS: Emergency Provider Nurse Practitioner Family; PCP Emergency Medicine
DX: H66.002 Acute suppurative otitis media without spontaneous rupture of ear drum, left ear (principal); G43.909 Migraine, unspecified, not intractable, without status migrainosus
CPT/HCPCS: 99202; G0463

== ENCOUNTER → 2020-08-15 10:53 | Outpatient (CLI) | payer OTHER, SELFPAY ==
[2020-08-15 11:33] LABS: Basophils # 0.1 K/mm3 (0-0.2); Basophils % 0.7 % (0.1-2.0); Eosinophils # 0.2 K/mm3 (0.0-0.4); Eosinophils % 1.5 % (0.1-12.0); Hematocrit 42.5 % (37.0-47.0); Hemoglobin 13.2 g/dL (12.2-16.2); Lymphocytes # 3.9 K/mm3 (0.7-4.5); Lymphocytes % 36.2 % (10-50); Mean Corpuscular HGB Conc 31.1 g/dL (31.8-35.4); Mean Corpuscular Hemoglobin 26.8 pg (27.0-31.2); Mean Corpuscular Volume 86.2 fl (81-99); Mean Platelet Volume 9.8 fl (7.4-10.4); Monocytes # 0.5 K/mm3 (0.1-1.0); Monocytes % 4.3 % (1.7-9.3); Neutrophils # 6.2 K/mm3 (1.8-7.8); Neutrophils % 57.1 % (37.0-80.0); Platelet Count 210 K/mm3 (142-424); Red Blood Count 4.93 M/mm3 (4.20-5.40); Red Cell Distribution Width 13.9 % (11.5-17.5); White Blood Count 10.9 K/mm3 (4.5-13.0)
[2020-08-15 11:54] LABS: Iron 39 ug/dL (37-170)
[2020-08-15 12:13] LABS: Total Iron Binding Capacity 430 ug/dL (265-497)
[2020-08-16 10:43] LABS: Progesterone <0.1 ng/mL (.)
== END ==
PROVIDERS: Internal Medicine Medical Oncology; Visit Provider Obstetrics & Gynecology
DX: D50.0 Iron deficiency anemia secondary to blood loss (chronic) (principal)
CPT/HCPCS: 36415; 82728; 83540; 83550; 84144; 85025

== ENCOUNTER 2020-08-22 15:48 | Emergency (ER) | payer OTHER, SELFPAY ==
[2020-08-22 15:49] VITALS: BP 149/88; PULSE 87; RESP 18; TEMP 36.7; O2SAT 99; BMI 43.7
[2020-08-22 16:07] VITALS: BP 142/90; PULSE 76; RESP 16; TEMP 37.2; O2SAT 100; BMI 43.7
--- NOTE | 2020-08-22 16:25 | HMH.EDUTC ---
[facility] [place] Disposition Clinical Impression: Low back pain Qualifiers: Chronicity: acute Back pain laterality: bilateral Sciatica presence: without sciatica Qualified Code(s): M54.5 - Low back pain Disposition: Home, Self-Care Condition on Discharge: Good (back) Instructions: DI for Back Strain or Sprain Additional Instructions: Go home and rest. It would be best if you rested tomorrow too. No heavy lifting. No twisting. Take the oral medications as directed. The muscle relaxer (robaxin) will make you drowsy, so don't drive or operate heavy machinery after taking it. Follow up with your regular doctor. GO TO THE ER FOR ANY WORSENING SYMPTOMS OR CONCERN, ESPECIALLY BOWEL OR BLADDER ISSUES, SADDLE AREA NUMBNESS, FEVER, ETC Prescriptions: Ibuprofen [Ibuprofen 600mg Tablet] 600 mg PO Q6HP PRN #30 tab PRN Reason: Mild Pain Transmission Status: Received by [id number] methocarbamoL [Robaxin 750mg Tab] 750 mg PO BIDP PRN #30 tab PRN Reason: Muscle Spasm Transmission Status: Received by [id number] Referrals: Augustine Lott MD [Primary Care Provider] - Forms: Work/School Release Time of Disposition: 16:28 Medical Decision Making - Medical Records Medical records reviewed: No: I reviewed the patient's medical records. - Dariusz Inquiry Pt receiving controlled substance: No Vital Signs: 08/22/20 15:49 08/22/20 16:07 08/22/20 16:30 Temperature 98.1 F 98.9 F 98.9 F Temperature Source Oral Oral Pulse Rate 74 Pulse Rate [Right] 87 76 Respiratory Rate 18 16 19 Blood Pressure 133/87 Blood Pressure [Right Arm] 149/88 H 142/90 H Blood Pressure Mean [Right Arm] 108 107 Blood Pressure Source [Right Arm] Automatic Cuff Blood Pressure Position [Right Arm] Sitting 02 Sat by Pulse Oximetry 99 100 Oxygen Delivery Method Room Air Room Air [facility] [place] HPI - General Stated complaint: AO [id number]@1300 injured back Time Seen by Provider: 08/22/20 16:25 Mode of Arrival: Ambulatory Source of Information: Patient Limitations: No Limitations Description of Symptoms (Recalled from Triage Doc. by RN): pt was moving around her couch and strained something in the middle R side of her back. she is having stabbing pain 02/14. HEENT Symptoms (Recalled from RN notes): No Resp Symptoms (Recalled from RN notes): No Skin Symptoms (Recalled from RN notes): No MS Symptoms (Recalled from RN notes): Yes (middle R sided back pain) Functional Status (Recalled from RN notes): na - History of Present Illness Provider Complaint: She c/o low back pain since she moved her cough 2 days ago. She denies any radiation of the pain. She denies any numbness or tingling of her legs. She denies any saddle area numbness or bowel or bladder issues. - Related Data Home Medications Medication Instructions Recorded Confirmed Lurasidone HCl [Latuda] 40 mg PO DAILY 08/13/20 08/22/20 Previous Rx's Medication Instructions Recorded Ibuprofen [Ibuprofen 600mg 600 mg PO Q6HP PRN #30 tab 08/22/20 Tablet] methocarbamoL [Robaxin 750mg Tab] 750 mg PO BIDP PRN #30 tab 08/22/20 Allergies Allergy/AdvReac Type Severity Reaction Status Date / Time No Known Allergies Allergy Verified 08/22/20 16:01 - Worker's Comp Is this a Worker's Comp case?: No [facility] History - Hepatitis A Screen Drug use history?: No High risk sexual behaviors?: No History of sexually transmitted infection?: No Currently employed?: No Childcare worker?: No Do you have indoor plumbing?: Yes Do you have electricity?: Yes Attestation statement:: This patient has been screened for Hepatitis A risk factors. I have reviewed the patient's past medical history: Yes Medical History: Reports:: Hypertension Denies:: Diabetes Mellitus Type 1, Diabetes Mellitus Type 2 Other Medical History: Reports: Anemia Other Surgeries: Yes: No Previous Surgery Amputation: No Fractures: No - Social History Smoking Status: Unknown if ever smoked
[2020-08-22 16:30] VITALS: BP 133/87; PULSE 74; RESP 19; TEMP 37.2
== END 2020-08-22 16:32 | disposition home or self-care (01) ==
PROVIDERS: Emergency Provider Nurse Practitioner Family; PCP Emergency Medicine
DX: M54.5 Low back pain (principal); X50.0XXA Overexertion from strenuous movement or load, initial encounter
CPT/HCPCS: 99202; G0463

== ENCOUNTER → 2020-10-16 13:41 | Outpatient (CLI) | payer OTHER, SELFPAY ==
[2020-10-16 15:31] LABS: HCG,Quantitative < 2 mIU/ml (0-5.42)
== END ==
PROVIDERS: Visit Provider Nurse Practitioner Psychiatric/Mental Health
DX: Z34.90 Encounter for supervision of normal pregnancy, unspecified, unspecified trimester (principal)
CPT/HCPCS: 36415; 84702

== ENCOUNTER → 2020-10-21 14:10 | Outpatient (CLI) | payer OTHER, SELFPAY ==
[2020-10-21 16:03] LABS: HCG,Quantitative < 2 mIU/ml (0-5.42)
== END ==
PROVIDERS: Visit Provider Obstetrics & Gynecology
DX: Z34.90 Encounter for supervision of normal pregnancy, unspecified, unspecified trimester (principal)
CPT/HCPCS: 36415; 84702

== ENCOUNTER 2020-11-17 08:05 | Emergency (ER) | payer OTHER, SELFPAY ==
[2020-11-17 08:05] VITALS: BP 148/96; PULSE 92; RESP 18; TEMP 36.9; O2SAT 98; BMI 41.1
--- NOTE | 2020-11-17 08:28 | HMH.EDGENADL ---
ED Disposition Clinical Impression: Strep pharyngitis Disposition: Home, Self-Care Condition on Discharge: Good Instructions: DI for Strep Throat Additional Instructions: Amoxicillin as prescribed. Tylenol as needed for pain or fever. Follow-up with primary care provider if not improving in 4 to 5 days. Prescriptions: Amoxicillin [Amoxicillin 500mg Cap] 500 mg PO TID #30 cap Transmission Status: Pending to [id number] Referrals: Augustine Lott MD [Primary Care Provider] - - Critical Care Critical Care Time: No Attestation: On 11/17/20, the high probability of a clinically significant, sudden or life threatening deterioration of the following system(s) required my full and direct attention, intervention and personal management. The time I documented below is in addition to time spent performing reported procedures but includes the following listed in this critical care notation. Medical Decision Making - Dariusz Inquiry Pt receiving controlled substance: No Vital Signs: 11/17/20 08:05 Temperature 98.4 F Temperature Source Oral Pulse Rate [Left Radial] 92 H Respiratory Rate 18 Blood Pressure [Right Arm] 148/96 H Blood Pressure Mean [Right Arm] 113 Blood Pressure Source [Right Arm] Automatic Cuff Blood Pressure Position [Right Arm] Sitting 02 Sat by Pulse Oximetry 98 Oxygen Delivery Method Room Air - Lab Data Lab Results 11/17/20 08:20: Group A Strep Rapid Positive A General Adult HPI - General Chief complaint: Upper Respiratory Infection Stated complaint: sore throat, congestion Time Seen by Provider: 11/17/20 08:23 Mode of Arrival: Ambulatory Limitations: No Limitations Description of Symptoms (Recalled from ER Triage Doc. by RN): pt c/o sore throat and stuffy nose since yesterday. - History of Present Illness HPI narrative: 1 day history of stuffy nose and sore throat. She says she is pretty sure it is strep because she gets it frequently. She thinks she had strep a couple of months ago. No known exposure to strep. No cough, no fever. She had the Moderna COVID-19 vaccination first dose 2 weeks ago. No known exposure to COVID-19. - Related Data Previous Rx's Medication Instructions Recorded trazodone 50 mg tablet 50 mg PO QHS PRN #30 tab 10/16/20 Amoxicillin [Amoxicillin 500mg 500 mg PO TID #30 cap 11/17/20 Cap] Allergies Allergy/AdvReac Type Severity Reaction Status Date / Time No Known Allergies Allergy Verified 09/11/20 13:45 [facility] History - Hepatitis A Screen Drug use history?: No High risk sexual behaviors?: No History of sexually transmitted infection?: No Currently employed?: No Childcare worker?: No Do you have indoor plumbing?: Yes Do you have electricity?: Yes Attestation statement:: This patient has been screened for Hepatitis A risk factors. I have reviewed the patient's past medical history: Yes Medical History: Reports:: Hypertension Denies:: Diabetes Mellitus Type 1, Diabetes Mellitus Type 2 Other Medical History: Reports: Anemia Other Surgeries: Yes: No Previous Surgery Amputation: No Fractures: No - Social History Smoking Status: Unknown if ever smoked Tobacco Type: cigarettes # Packs/Day (cigarettes): 0 Alcohol Intake: never Alcohol Intake Frequency:: holidays/special occasions only Substance Use Type: denies use Occupational Status: employed Housing: house Household Members: significant other Family Hx:: Diabetes, Hypertension ROS Obtained: Yes Systems reviewed as appropriate & no additional complaints - Constitutional Constitutional: Denies fever(s) - ENT Ears, Nose, Mouth, and Throat: Reports nasal congestion, Reports sore throat - Respiratory Respiratory: Denies cough Physical Exam - General General appearance: alert, in no apparent distress - Head Head exam: atraumatic, normocephalic - Eye Eye exam: Absent: conjunctival injection - ENT ENT exam: Present: mucous membranes
[2020-11-17 08:40] LABS: Strep Scrn Group A (Rapid) Positive (Negative)
[2020-11-17 08:57] VITALS: BP 159/90; PULSE 81; RESP 20; TEMP 36.9; O2SAT 98
== END 2020-11-17 09:00 | disposition home or self-care (01) ==
PROVIDERS: Emergency Provider Emergency Medicine; PCP Emergency Medicine
DX: J02.0 Streptococcal pharyngitis (principal); I10 Essential (primary) hypertension
CPT/HCPCS: 87430; 99281

== ENCOUNTER 2020-11-17 16:01 | Emergency (ER) | payer OTHER, SELFPAY ==
[2020-11-17 16:45] VITALS: BP 140/58; PULSE 89; RESP 16; TEMP 36.7; O2SAT 98; BMI 42.0
[2020-11-17 17:27] VITALS: BP 140/58; PULSE 89; RESP 16; TEMP 36.7; O2SAT 98
--- NOTE | 2020-11-17 17:36 | HMH.EDUTC ---
[facility] [place] Impression: Exposure to COVID-19 virus Disposition: Home, Self-Care Condition on Discharge: Good Instructions: DI for COVID-19 (Suspected or Confirmed ), Preventing the Spread of Coronavirus Discharge Instructions Additional Instructions: You were tested for today for COVID19 your test result should be back in the next 24-48 hours, you may call to the [facility] to see if your test results are back in the next 48 hours [phone] [facility] hours are 9am-9pm You was given a handout with instructions for Self Quarantine and Self isolation for while you wait on test results and what to do if they are positive If you are positive the Health Dept will be contacting you also Make sure to take medication for strep throat that you was prescribed earlier today in the Emergency room Referrals: Augustine Lott MD [Primary Care Provider] - As needed Time of Disposition: 17:43 Medical Decision Making - Dariusz Inquiry Pt receiving controlled substance: No Dariusz was queried for this patient: No Vital Signs: 11/17/20 16:45 11/17/20 17:27 Temperature 98.0 F 98.0 F Temperature Source Oral Pulse Rate 89 Pulse Rate [Right Brachial] 89 Respiratory Rate 16 16 Blood Pressure 140/58 L Blood Pressure [Right Arm] 140/58 L Blood Pressure Mean [Right Arm] 85 Blood Pressure Source [Right Arm] Automatic Cuff Blood Pressure Position [Right Arm] Sitting 02 Sat by Pulse Oximetry 98 Oxygen Delivery Method Room Air Orders (Tests/Meds): ORDERS Category Date Time Status Covid-19 Nasal PCR ([facility]) Routine Lab 11/17/20 16:50 [place] [facility] [place] - General Stated complaint: covid test Time Seen by Provider: 11/17/20 17:36 Mode of Arrival: Ambulatory Source of Information: Patient Limitations: No Limitations Description of Symptoms (Recalled from Triage Doc. by RN): PATIENT REQUESTING COVID TEST D/T POSSIBLE EXPOSURE. C/O SORE THROAT, NAUSEA, VOMITING AND COUGH SINCE YESTERDAY, DIAGNOSED WITH STREP THIS MORNING IN ER HEENT Symptoms (Recalled from RN notes): Yes Resp Symptoms (Recalled from RN notes): No Skin Symptoms (Recalled from RN notes): No MS Symptoms (Recalled from RN notes): No Functional Status (Recalled from RN notes): WNL - History of Present Illness Provider Complaint: Patient states that they believe a friend may have tested positive for COVID State that she was seen in the ED last night and was Dx with strep throat State that she has been having sore throat, cough, nausea and body aches and even though she tested positive for strep she wanted to get tested for COVID after finding out her friend may have it that she has been around - Related Data Previous Rx's Medication Instructions Recorded trazodone 50 mg tablet 50 mg PO QHS PRN #30 tab 10/16/20 Amoxicillin [Amoxicillin 500mg 500 mg PO TID #30 cap 11/17/20 Cap] Allergies Allergy/AdvReac Type Severity Reaction Status Date / Time No Known Allergies Allergy Verified 09/11/20 13:45 - Worker's Comp Is this a Worker's Comp case?: No [facility] History - Hepatitis A Screen Drug use history?: No High risk sexual behaviors?: No History of sexually transmitted infection?: No Currently employed?: No Childcare worker?: No Do you have indoor plumbing?: Yes Do you have electricity?: Yes Attestation statement:: This patient has been screened for Hepatitis A risk factors. I have reviewed the patient's past medical history: Yes Medical History: Reports:: Hypertension Denies:: Diabetes Mellitus Type 1, Diabetes Mellitus Type 2 Other Medical History: Reports: Anemia Other Surgeries: Yes: No Previous Surgery Amputation: No Fractures: No - Social History Smoking Status: Unknown if ever smoked Tobacco Type: cigarettes # Packs/Day (cigarettes): 0 Alcohol Intake: never Alcohol Intake Frequency:: holidays/special occasions only Substance Use Type: denies use Occupational Status: employed Housing: house Household Members: [facility]
== END 2020-11-17 17:50 | disposition home or self-care (01) ==
PROVIDERS: Emergency Provider Nurse Practitioner; PCP Emergency Medicine
DX: Z20.822 Contact with and (suspected) exposure to COVID-19 (principal); R11.10 Vomiting, unspecified; R05 Cough
CPT/HCPCS: 99202; G0463; U0003

== ENCOUNTER 2020-12-10 18:20 | Emergency (ER) | payer OTHER, SELFPAY ==
[2020-12-10 18:20] VITALS: BP 141/91; PULSE 75; RESP 19; TEMP 36.9; O2SAT 99; BMI 42.9
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
[2020-12-10 19:11] VITALS: BP 141/91; PULSE 75; RESP 19; TEMP 36.9; O2SAT 99
== END 2020-12-10 19:12 | disposition home or self-care (01) ==
PROVIDERS: Emergency Provider Nurse Practitioner; PCP Emergency Medicine
DX: L55.0 Sunburn of first degree (principal); I10 Essential (primary) hypertension

== ENCOUNTER 2020-12-16 15:55 | Emergency (ER) | payer OTHER, SELFPAY ==
[2020-12-16 15:55] VITALS: BP 160/95; PULSE 73; RESP 20; TEMP 37.1; O2SAT 98; BMI 42.9
--- NOTE | 2020-12-16 16:07 | ECG_ITS ---
APPROVED REPORT Exam: Resting ECG HR:76 bpm ECG Measurements Heart Rate 76 AXES MD 132 P 13 QRSd 86 QRS 30 QT 406 T 13 QTc 456 Conclusion Normal sinus rhythm Nonspecific T wave abnormality Abnormal ECG Electronically signed by : David Cruz, 12/18/2020 21:40:17
--- NOTE | 2020-12-16 16:26 | HMH.EDCP ---
ED Disposition Clinical Impression: Chest wall discomfort, Atypical chest pain Disposition: Home, Self-Care Condition on Discharge: Good Instructions: DI for Atypical Chest Pain Additional Instructions: Your work-up in the emergency department today did not reveal any life-threatening or dangerous cause for your chest pain. It is reproducible with palpation of the chest wall as well as tensing your muscles. Therefore, I believe that the pain is due to your muscles in your chest. However, I strongly suggest that you follow-up with your primary care physician within the next few days if your symptoms do not improve. Also, return to the emergency department if your symptoms worsen. Referrals: Augustine Lott MD [Primary Care Provider] - - Critical Care Critical Care Time: No Attestation: On 12/16/20, the high probability of a clinically significant, sudden or life threatening deterioration of the following system(s) required my full and direct attention, intervention and personal management. The time I documented below is in addition to time spent performing reported procedures but includes the following listed in this critical care notation. Medical Decision Making - Medical Records Medical records reviewed: Yes: I reviewed the patient's medical records. - Dariusz Inquiry Pt receiving controlled substance: No Vital Signs: 12/16/20 15:55 12/16/20 16:33 12/16/20 17:42 Temperature 98.7 F Temperature Source Oral Pulse Rate 87 80 Pulse Rate [Right] 73 Respiratory Rate 20 14 18 Blood Pressure 160/95 H 126/83 Blood Pressure [Right Arm] 160/95 H Blood Pressure Mean [Right Arm] 116 02 Sat by Pulse Oximetry 98 97 97 Oxygen Delivery Method Room Air - Lab Data Lab results reviewed: Yes: I reviewed the patient's lab results. Lab Results 12/16/20 17:00: WBC 8.3, RBC 5.01, Hgb 12.7, Hct 38.7, MCV 77.2 L, MCH 25.4 L, MCHC 32.9, RDW 15.0, Plt Count 183, MPV 9.5, Neut % (Auto) 63.0, Lymph % (Auto) 27.2, [place] % (Auto) 6.0, Eos % (Auto) 2.5, Baso % (Auto) 1.3, Neut # (Auto) 5.2, Lymph # (Auto) 2.3, [place] # (Auto) 0.5, Eos # (Auto) 0.2, Baso # (Auto) 0.1 12/16/20 17:00: Troponin I < 0.01 12/16/20 17:00: Sodium 142, Potassium 3.9, Chloride 103, Carbon Dioxide 29, Anion Gap 13.9, BUN 11, Creatinine 0.70, Estimated Creat Clear 111, Estimated GFR 107, Est GFR ( Amer) 129, Glucose 106 H, Calcium 9.5 12/16/20 17:10: Urine HCG, Qual Negative Result diagrams: 12/16/20 17:00 12/16/20 17:00 Orders (Tests/Meds): ORDERS Category Date Time Status Troponin I Q3H Lab 12/16/20 19:45 Ordered Troponin I Q3H Lab 12/16/20 22:45 Ordered ECG Request by /Sasha Stat Y 12/16/20 16:33 Ordered - Radiology Data #1 Image(s): Chest Image Reviewed: Yes I reviewed the patient's radiology results, Yes I reviewed the patient's radiology image, Yes I have reviewed radiologist's interpretation Preliminary Findings: Normal/NAD The x-ray was reviewed by me. I do not see any acute changes on the radiograph. - ECG Data Tracing #1 I reviewed this ECG and interpreted as documented below: EKG was done at 1608 on December 16. It shows a normal sinus rhythm with a rate of 76 bpm. The axes are normal. The intervals are normal. There is no evidence of ischemia. There are no dysrhythmias. Normal Sinus Rhythm: Yes - JIAN Score for Non-Stemi Age of Patient: <30 years old Heart Rate: 70-89 bpm Systolic Blood Pressure: 140-159 mmHg Serum Creatinine: 0.40-0.79 mg/dl CHF [place] Class: I-No CHF Other Risk Factors: None Non-Stemi Risk Score: 37 Medical Decision Narrative: The patient presents to the emergency department complaining of several days of left-sided chest/breast pain. She denies any fevers. She denies any redness. She denies any nipple discharge. On physical examination the breast is somewhat tender without any evidence of infection. No masses were palpable. Also no lymphadenopathy. There is no di
--- NOTE | 2020-12-16 16:30 | PC.NURSE ---
accompanied ER MD in room during breast examination
[2020-12-16 16:33] VITALS: BP 160/95; PULSE 87; RESP 14; O2SAT 97
--- NOTE | 2020-12-16 16:33 | XR_ITS ---
PROCEDURE INFORMATION: Exam: XR Chest Exam date and time: 12/16/2020 4:33 PM Age: 20 years old Clinical indication: Shortness of breath; Additional info: Dyspnea, covid+, cp TECHNIQUE: Imaging protocol: XR of the chest. Views: 1 view. COMPARISON: CR XR CHEST 2V 07/25/2019 3:56 AM FINDINGS: Lungs: Unremarkable. No consolidation. Pleural spaces: Unremarkable. No pleural effusion. No pneumothorax. Heart/Mediastinum: Unremarkable. No cardiomegaly. Bones/joints: Unremarkable. IMPRESSION: No acute findings.
[2020-12-16 17:22] LABS: Basophils # 0.1 K/mm3 (0-0.2); Basophils % 1.3 % (0.1-2.0); Eosinophils # 0.2 K/mm3 (0.0-0.4); Eosinophils % 2.5 % (0.1-12.0); Hematocrit 38.7 % (37.0-47.0); Hemoglobin 12.7 g/dL (12.2-16.2); Lymphocytes # 2.3 K/mm3 (0.7-4.5); Lymphocytes % 27.2 % (10-50); Mean Corpuscular HGB Conc 32.9 g/dL (31.8-35.4); Mean Corpuscular Hemoglobin 25.4 pg (27.0-31.2); Mean Corpuscular Volume 77.2 fl (81-99); Mean Platelet Volume 9.5 fl (7.4-10.4); Monocytes # 0.5 K/mm3 (0.1-1.0); Neutrophils # 5.2 K/mm3 (1.8-7.8); Platelet Count 183 K/mm3 (142-424); Red Blood Count 5.01 M/mm3 (4.20-5.40); White Blood Count 8.3 K/mm3 (4.5-13.0)
[2020-12-16 17:27] LABS: Chloride 103 mmol/L (98-107); Sodium 142 mmol/L (136-145)
[2020-12-16 17:28] LABS: Potassium 3.9 mmoL/L (3.5-5.1)
[2020-12-16 17:30] LABS: Blood Urea Nitrogen 11 mg/dl (7-17); Creatinine Clearance Estimated 111 mL/min (50-200); Estimated Glomerular Filt Rate 107 ml/min (>60); GFR (African American) 129 ML/MIN (>60)
[2020-12-16 17:31] LABS: Anion Gap 13.9 mEq/L (5-15); Calcium 9.5 mg/dl (8.4-10.2); Carbon Dioxide 29 mmol/L (22.0-30.0); Glucose 106 mg/dl (74-100)
[2020-12-16 17:32] LABS: Urine Pregnancy, HCG Qual. Negative (Negative)
[2020-12-16 17:42] VITALS: BP 126/83; PULSE 80; RESP 18; O2SAT 97
[2020-12-16 17:46] LABS: Troponin I < 0.01 ng/ml (0.00-0.034)
[2020-12-16 18:18] VITALS: BP 145/94; PULSE 71; RESP 16; TEMP 36.8; O2SAT 99
== END 2020-12-16 18:20 | disposition home or self-care (01) ==
PROVIDERS: Emergency Provider Emergency Medicine; PCP Emergency Medicine
DX: R07.89 Other chest pain (principal); I10 Essential (primary) hypertension
CPT/HCPCS: 71045; 80048; 81025; 84484; 85025; 93005; 99283

== ENCOUNTER 2021-01-08 14:34 | Emergency (ER) | payer OTHER, SELFPAY ==
[2021-01-08 14:34] VITALS: BP 139/91; PULSE 82; RESP 21; TEMP 36.9; O2SAT 99; BMI 43.7
--- NOTE | 2021-01-08 15:30 | HMH.EDUTC ---
[facility] [place] Clinical Impression: Viral syndrome Disposition: Home, Self-Care Condition on Discharge: Good Instructions: DI for Viral Syndrome Additional Instructions: Drink plenty of fluids. Take tylenol for pain or fever. Return if you begin to have difficulty breathing. Follow up with your regular doctor. GO TO THE ER FOR ANY WORSENING SYMPTOMS Prescriptions: Ondansetron [Zofran 4mg ODT] 4 mg PO Q8HP PRN #12 tab.rapdis PRN Reason: Nausea Transmission Status: Received by [id number] Referrals: Augustine Lott MD [Primary Care Provider] - Forms: Work/School Release Time of Disposition: 17:04 Medical Decision Making - Medical Records Medical records reviewed: No: I reviewed the patient's medical records. - Dariusz Inquiry Pt receiving controlled substance: No Vital Signs: 01/08/21 14:34 01/08/21 17:58 Temperature 98.4 F 98.4 F Temperature Source Oral Pulse Rate 82 Pulse Rate [Left Radial] 82 Respiratory Rate 21 21 Blood Pressure 139/91 H Blood Pressure [Right Arm] 139/91 H Blood Pressure Mean [Right Arm] 107 Blood Pressure Source [Right Arm] Automatic Cuff Blood Pressure Position [Right Arm] Sitting 02 Sat by Pulse Oximetry 99 Oxygen Delivery Method Room Air Room Air - Lab Data Lab results reviewed: Yes: I reviewed the patient's lab results. Lab Results 01/08/21 15:40: WBC 5.9, RBC 5.21, Hgb 13.2, Hct 40.7, MCV 78.2 L, MCH 25.3 L, MCHC 32.3, RDW 14.9, Plt Count 205, MPV 10.0, Neut % (Auto) 53.0, Lymph % (Auto) 39.7, [place] % (Auto) 4.3, Eos % (Auto) 1.9, Baso % (Auto) 1.2, Neut # (Auto) 3.1, Lymph # (Auto) 2.4, [place] # (Auto) 0.3, Eos # (Auto) 0.1, Baso # (Auto) 0.1 01/08/21 15:40: Sodium 138, Potassium 4.5, Chloride 102, Carbon Dioxide 29, Anion Gap 11.5, BUN 10, Creatinine 0.80, Estimated Creat Clear 97, Estimated GFR 91, Est GFR ( Amer) 111, Glucose 97, Calcium 9.4 Result diagrams: 01/08/21 15:40 01/08/21 15:40 [facility] [place] - General Stated complaint: dizzy, lightheaded Time Seen by Provider: 01/08/21 14:50 Mode of Arrival: Ambulatory Source of Information: Patient Limitations: No Limitations Description of Symptoms (Recalled from Triage Doc. by RN): c/o lightheadness and dizziness for 3 days with left ear pressure HEENT Symptoms (Recalled from RN notes): Yes Resp Symptoms (Recalled from RN notes): No Skin Symptoms (Recalled from RN notes): No MS Symptoms (Recalled from RN notes): No Functional Status (Recalled from RN notes): wnl - History of Present Illness Provider Complaint: She states that for the past 2 days she has had dizziness and lightheadedness. She has a history of anemia. She is kind of concerned that this could be the problem. - Related Data Previous Rx's Medication Instructions Recorded trazodone 50 mg tablet 50 mg PO QHS PRN #30 tab 11/25/20 propranolol 80 mg capsule,24 80 mg PO DAILY #30 cap 12/18/20 hr,extended release ubrogepant 100 mg tablet 100 mg PO ONCE #10 tab 12/18/20 Ondansetron [Zofran 4mg ODT] 4 mg PO Q8HP PRN #12 tab.rapdis 01/08/21 Allergies Allergy/AdvReac Type Severity Reaction Status Date / Time No Known Allergies Allergy Verified 12/18/20 15:24 - Worker's Comp Is this a Worker's Comp case?: No [facility] History - Hepatitis A Screen Drug use history?: No High risk sexual behaviors?: No History of sexually transmitted infection?: No Currently employed?: No Childcare worker?: No Do you have indoor plumbing?: Yes Do you have electricity?: Yes Attestation statement:: This patient has been screened for Hepatitis A risk factors. I have reviewed the patient's past medical history: Yes Medical History: Reports:: Hypertension, Migraine Denies:: Diabetes Mellitus Type 1, Diabetes Mellitus Type 2 Other Medical History: Reports: Anemia Other Surgeries: Yes: No Previous Surgery Amputation: No Fractures: No - Social History Smoking Status: Never smoker Tobacco Type: cigaret
[2021-01-08 16:13] LABS: Basophils # 0.1 K/mm3 (0-0.2); Basophils % 1.2 % (0.1-2.0); Eosinophils # 0.1 K/mm3 (0.0-0.4); Eosinophils % 1.9 % (0.1-12.0); Hematocrit 40.7 % (37.0-47.0); Hemoglobin 13.2 g/dL (12.2-16.2); Lymphocytes # 2.4 K/mm3 (0.7-4.5); Lymphocytes % 39.7 % (10-50); Mean Corpuscular HGB Conc 32.3 g/dL (31.8-35.4); Mean Corpuscular Hemoglobin 25.3 pg (27.0-31.2); Mean Corpuscular Volume 78.2 fl (81-99); Monocytes # 0.3 K/mm3 (0.1-1.0); Monocytes % 4.3 % (1.7-9.3); Neutrophils # 3.1 K/mm3 (1.8-7.8); Platelet Count 205 K/mm3 (142-424); Red Blood Count 5.21 M/mm3 (4.20-5.40); Red Cell Distribution Width 14.9 % (11.5-17.5); White Blood Count 5.9 K/mm3 (4.5-13.0)
--- NOTE | 2021-01-08 16:22 | ECG_ITS ---
APPROVED REPORT Exam: Resting ECG HR:58 bpm ECG Measurements Heart Rate 58 AXES AR 134 P 21 QRSd 80 QRS -6 QT 432 T -11 QTc 424 Conclusion Sinus bradycardia Minimal voltage criteria for LVH, may be normal variant Nonspecific T wave abnormality Abnormal ECG Electronically signed by : David Cruz MD 01/10/2021 11:39:19
[2021-01-08 16:33] LABS: Anion Gap 11.5 mEq/L (5-15); Blood Urea Nitrogen 10 mg/dl (7-17); Calcium 9.4 mg/dl (8.4-10.2); Carbon Dioxide 29 mmol/L (22.0-30.0); Chloride 102 mmol/L (98-107); Creatinine Clearance Estimated 97 mL/min (50-200); Estimated Glomerular Filt Rate 91 ml/min (>60); GFR (African American) 111 ML/MIN (>60); Glucose 97 mg/dl (74-100); Potassium 4.5 mmoL/L (3.5-5.1); Sodium 138 mmol/L (136-145)
[2021-01-08 17:58] VITALS: BP 139/91; PULSE 82; RESP 21; TEMP 36.9; O2SAT 99
== END 2021-01-08 17:59 | disposition home or self-care (01) ==
PROVIDERS: Emergency Provider Nurse Practitioner Family; PCP Emergency Medicine
DX: B34.9 Viral infection, unspecified (principal); R42 Dizziness and giddiness; D64.9 Anemia, unspecified; G43.709 Chronic migraine without aura, not intractable, without status migrainosus
CPT/HCPCS: 80048; 85025; 93005; 99203; G0463

== ENCOUNTER → 2021-01-09 13:47 | Outpatient (CLI) | payer OTHER, SELFPAY | PROVIDERS: PCP Emergency Medicine; Visit Provider Nurse Practitioner Family | DX: N64.4 Mastodynia (principal) ==

== ENCOUNTER → 2021-01-28 11:58 | Outpatient (CLI) | payer OTHER, SELFPAY ==
[2021-01-28 14:23] LABS: HCG,Quantitative < 2 mIU/ml (0-5.42)
== END ==
PROVIDERS: Visit Provider Obstetrics & Gynecology
DX: N92.6 Irregular menstruation, unspecified (principal)
CPT/HCPCS: 36415; 84702

== ENCOUNTER 2021-01-29 14:54 | Emergency (ER) | payer OTHER, SELFPAY ==
[2021-01-29 16:19] VITALS: BP 136/92; PULSE 61; RESP 16; TEMP 36.8; O2SAT 98; BMI 41.1
--- NOTE | 2021-01-29 16:23 | HMH.EDUTC ---
[facility] [place] Disposition Clinical Impression: Exposure to COVID-19 virus Disposition: Home, Self-Care Condition on Discharge: Good Instructions: DI for COVID-19 (Suspected or Confirmed ), Coronavirus Disease 2019, Preventing the Spread of Coronavirus Discharge Instructions Additional Instructions: *Monitor Temp, Over the counter Motrin or Tylenol as directed/as needed Tylenol every 4 hours and Motrin every 6 hours (as long as your family doctor has told you that you can take it) for fever or pain. and straight to ER if unable to lower temp less than 101.0 after medication given *Warm salt water gargles may help to soothe the throat *Throat Lozenges *Warm fluids like tea with honey may help to soothe the throat *Sleep elevated *Humidifier/Vaporizer Zofran for nausea Follow up IMMEDIATELY for new or worsening symptoms or no Noticeable improvement over the next 48-72 hours. 911 for difficulty breathing or swallowing You were tested for today for COVID19 your test result should be back in the next 24-48 hours, you may call to the [facility] to see if your test results are back in the next 48 hours [phone] [facility] hours are 9am-9pm You was given a handout with instructions for Self Quarantine and Self isolation for while you wait on test results and what to do if they are positive If you are positive the Health Dept will be contacting you also Make sure to take your Vitamins Vit. C Vit D and Zinc if you can take them Prescriptions: Ondansetron [Zofran 4mg ODT] 4 mg PO TIDP PRN #6 tab PRN Reason: Nausea Transmission Status: Pending to [id number] Referrals: Augustine Lott MD [Primary Care Provider] - As needed Forms: Work/School Release Medical Decision Making - Dariusz Inquiry Pt receiving controlled substance: No Dariusz was queried for this patient: No Vital Signs: 01/29/21 16:19 Temperature 98.3 F Temperature Source Oral Pulse Rate [Left] 61 Respiratory Rate 16 Blood Pressure [Right Arm] 136/92 H Blood Pressure Mean [Right Arm] 106 02 Sat by Pulse Oximetry 98 Orders (Tests/Meds): ORDERS Category Date Time Status Covid-19 Nasal PCR ([facility]) Routine Lab 01/29/21 16:14 Ordered [facility] [place] HPI - General Stated complaint: covid test Time Seen by Provider: 01/29/21 16:24 Mode of Arrival: Ambulatory Source of Information: Patient Limitations: No Limitations Description of Symptoms (Recalled from Triage Doc. by RN): pt was exposed to covid. pt is asymptomatic. HEENT Symptoms (Recalled from RN notes): No Resp Symptoms (Recalled from RN notes): No Skin Symptoms (Recalled from RN notes): No MS Symptoms (Recalled from RN notes): No Functional Status (Recalled from RN notes): na - History of Present Illness Provider Complaint: Patient state that she was around someone last week and then around them yesterday and they tested positive for COVID yesterday evening States that she has been feeling a little achy with headache and nausea on and off so she came in wanting to get tested - Related Data Previous Rx's Medication Instructions Recorded trazodone 50 mg tablet 50 mg PO QHS PRN #30 tab 11/25/20 propranolol 80 mg capsule,24 80 mg PO DAILY #30 cap 12/18/20 hr,extended release ubrogepant 100 mg tablet 100 mg PO ONCE #10 tab 12/18/20 Ondansetron [Zofran 4mg ODT] 4 mg PO Q8HP PRN #12 tab.rapdis 01/08/21 Ondansetron [Zofran 4mg ODT] 4 mg PO TIDP PRN #6 tab 01/29/21 Allergies Allergy/AdvReac Type Severity Reaction Status Date / Time No Known Allergies Allergy Verified 12/18/20 15:24 - Worker's Comp Is this a Worker's Comp case?: No [facility] History - Hepatitis A Screen Drug use history?: No High risk sexual behaviors?: No History of sexually transmitted infection?: No Currently employed?: No Childcare worker?: No Do you have indoor plumbing?: Yes Do you have electricity?: Yes Attestation statement:: This patient has been screened for Hepatitis A risk factors. I have re
[2021-01-29 16:38] VITALS: BP 136/92; PULSE 61; RESP 16; TEMP 36.9
== END 2021-01-29 16:48 | disposition home or self-care (01) ==
PROVIDERS: Emergency Provider Nurse Practitioner; PCP Emergency Medicine
DX: Z20.822 Contact with and (suspected) exposure to COVID-19 (principal); R11.0 Nausea; R51.9 Headache, unspecified; I10 Essential (primary) hypertension
CPT/HCPCS: 99202; G0463; U0003

== ENCOUNTER 2021-02-02 14:10 | Emergency (ER) | payer OTHER, SELFPAY ==
[2021-02-02 16:43] VITALS: BP 142/96; PULSE 62; RESP 14; TEMP 36.8; O2SAT 99; BMI 41.1
[2021-02-02 16:49] VITALS: BP 142/96; PULSE 62; RESP 15; TEMP 36.8
--- NOTE | 2021-02-02 16:53 | HMH.EDUTC ---
[facility] [place] Disposition Clinical Impression: Encounter for laboratory testing for COVID-19 virus Disposition: Home, Self-Care Condition on Discharge: Good Instructions: Preventing the Spread of Coronavirus Discharge Instructions Additional Instructions: You have been tested for COVID19. Please isolate as if you are positive until test results received. Referrals: Augustine Lott MD [Primary Care Provider] - Forms: Work/School Release Time of Disposition: 17:08 Medical Decision Making - Dariusz Inquiry Pt receiving controlled substance: No Vital Signs: 02/02/21 16:43 02/02/21 16:49 Temperature 98.3 F 98.3 F Temperature Source Oral Pulse Rate 62 Pulse Rate [Left] 62 Respiratory Rate 14 15 Blood Pressure 142/96 H Blood Pressure [Right Arm] 142/96 H Blood Pressure Mean [Right Arm] 111 02 Sat by Pulse Oximetry 99 [facility] [place] HPI - General Stated complaint: covid test Time Seen by Provider: 02/02/21 16:53 Mode of Arrival: Ambulatory Source of Information: Patient Limitations: No Limitations Description of Symptoms (Recalled from Triage Doc. by RN): pt c/o nasal congestion, cough, n/v/d, FORRESTER HEENT Symptoms (Recalled from RN notes): Yes (nasal congestion and FORRETSER) Resp Symptoms (Recalled from RN notes): Yes (cough) Skin Symptoms (Recalled from RN notes): No MS Symptoms (Recalled from RN notes): No Functional Status (Recalled from RN notes): na - History of Present Illness Provider Complaint: Nasal congestion, nausea, vomiting, diarrhea, cough. No fever. Exposed to COVID19 5 days ago and then started having symptoms the next day. Onset (ago): day(s) (4) Relieving factors: none Exacerbating factors: none Associated symptoms: cough, fever/chills, malaise Treatments prior to arrival: none - Related Data Previous Rx's Medication Instructions Recorded trazodone 50 mg tablet 50 mg PO QHS PRN #30 tab 11/25/20 propranolol 80 mg capsule,24 80 mg PO DAILY #30 cap 12/18/20 hr,extended release ubrogepant 100 mg tablet 100 mg PO ONCE #10 tab 12/18/20 Ondansetron [Zofran 4mg ODT] 4 mg PO Q8HP PRN #12 tab.rapdis 01/08/21 Ondansetron [Zofran 4mg ODT] 4 mg PO TIDP PRN #6 tab 01/29/21 Allergies Allergy/AdvReac Type Severity Reaction Status Date / Time No Known Allergies Allergy Verified 12/18/20 15:24 - Worker's Comp Is this a Worker's Comp case?: No [facility] History - Hepatitis A Screen Drug use history?: No High risk sexual behaviors?: No History of sexually transmitted infection?: No Currently employed?: No Childcare worker?: No Do you have indoor plumbing?: Yes Do you have electricity?: Yes Attestation statement:: This patient has been screened for Hepatitis A risk factors. I have reviewed the patient's past medical history: Yes Medical History: Reports:: Hypertension, Migraine Denies:: Diabetes Mellitus Type 1, Diabetes Mellitus Type 2 Other Medical History: Reports: Anemia Other Surgeries: Yes: No Previous Surgery Amputation: No Fractures: No - Social History Smoking Status: Never smoker Tobacco Type: cigarettes # Packs/Day (cigarettes): 0 Alcohol Intake: never Alcohol Intake Frequency:: holidays/special occasions only Substance Use Type: denies use Occupational Status: other Housing: house Household Members: significant other Family Hx:: Diabetes, Hypertension ROS Obtained: Yes All systems reviewed & no additional complaints - Constitutional Constitutional: Reports body ache, Reports chills, Reports fever(s), Reports headache(s), Reports malaise - ENT Ears, Nose, Mouth, and Throat: Reports nasal congestion - Respiratory Respiratory: Reports cough Physical Exam - General General appearance: alert, in no apparent distress - Head Head exam: normocephalic - Eye Eye exam: Present: PERRL - ENT ENT exam: Present: normal oropharynx, TM's normal bilaterally - Neck Neck exam: Present: normal inspection. Absent: lymphadenopathy - Chest Chest inspection: Pre
== END 2021-02-02 17:22 | disposition home or self-care (01) ==
PROVIDERS: Emergency Provider Physician Assistant; PCP Emergency Medicine
DX: Z20.822 Contact with and (suspected) exposure to COVID-19 (principal); R05 Cough; R11.2 Nausea with vomiting, unspecified; R51.9 Headache, unspecified; I10 Essential (primary) hypertension
CPT/HCPCS: 99203; G0463; U0003

== ENCOUNTER → 2021-03-19 14:39 | Outpatient (CLI) | payer BC, SELFPAY | PROVIDERS: PCP Emergency Medicine; Visit Provider Nurse Practitioner | DX: Z20.822 Contact with and (suspected) exposure to COVID-19 (principal) | CPT/HCPCS: C9803; U0003; U0005 ==

== ENCOUNTER → 2021-03-27 16:28 | Outpatient (CLI) | payer BC, SELFPAY | PROVIDERS: PCP Emergency Medicine; Visit Provider Nurse Practitioner | DX: Z20.822 Contact with and (suspected) exposure to COVID-19 (principal) | CPT/HCPCS: C9803; U0003; U0005 ==

== ENCOUNTER 2021-03-30 02:18 | Emergency (ER) | payer BC, SELFPAY ==
[2021-03-30 02:28] VITALS: BP 159/120; PULSE 79; RESP 16; TEMP 36.9; O2SAT 98; BMI 38.9
--- NOTE | 2021-03-30 02:34 | HMH.EDGENADL ---
ED Disposition Clinical Impression: Tension headache Fatigue Qualifiers: Fatigue type: unspecified Qualified Code(s): R53.83 - Other fatigue Disposition: Home, Self-Care Condition on Discharge: Fair Instructions: DI for Fatigue, DI for Hormonal and Tension Headaches Additional Instructions: You have been evaluated for fatigue. No clear cause. Likely an acute viral illness. You also have been diagnosed with tension headache. Please take Tylenol and Motrin for headache. Follow a sleep schedule, balanced diet. Follow-up with your primary care doctor within 24 to 48 hours. Return to the emergency department for any new or worsening symptoms, chest pain, neck pain, vomiting, other concerns. Prescriptions: Butalb/Acetaminophen/Caffeine [Fiorcet Tablet] 1 each PO Q8H PRN #12 tablet PRN Reason: Headache Transmission Status: Sent to [facility] No122/Iron/Folic Acid [ Multi Tablet] 1 each PO DAILY #30 tab Transmission Status: Pending to [facility] Referrals: Augustine Lott MD [Primary Care Provider] - Time of Disposition: 03:16 - Critical Care Critical Care Time: No Attestation: On , the high probability of a clinically significant, sudden or life threatening deterioration of the following system(s) required my full and direct attention, intervention and personal management. The time I documented below is in addition to time spent performing reported procedures but includes the following listed in this critical care notation. Medical Decision Making - Medical Records Medical records reviewed: Yes: I reviewed the patient's medical records. - Dariusz Inquiry Pt receiving controlled substance: No Vital Signs: 03/30/21 02:28 03/30/21 02:36 Temperature 98.4 F Temperature Source Oral Pulse Rate 77 Pulse Rate [Right Brachial] 79 Respiratory Rate 16 15 Blood Pressure 164/111 H Blood Pressure [Right Arm] 159/120 H Blood Pressure Mean [Right Arm] 133 Blood Pressure Source Automatic Cuff Blood Pressure Source [Right Arm] Automatic Cuff Blood Pressure Position Sitting Blood Pressure Position [Right Arm] Sitting 02 Sat by Pulse Oximetry 98 99 Oxygen Delivery Method Room Air Room Air - Lab Data Lab Results 03/30/21 02:34: Urine Color Straw, Urine Appearance Sl cloudy, Urine pH 6.0, Ur Specific [place] 1.015, Urine Protein Negative, Urine Glucose (UA) Negative, Urine Ketones Negative, Urine Blood Negative, Urine Nitrate Negative, Urine Bilirubin Negative, Urine Urobilinogen 0.2, Ur Leukocyte Esterase Negative, Urine WBC Occasional, Ur Squamous Epith Cells 5-10, Urine Bacteria 1+ 03/30/21 02:34: Urine HCG, Qual Negative 03/30/21 03:00: WBC 9.3, RBC 5.21, Hgb 13.3, Hct 43.1, MCV 82.8, MCH 25.4 L, MCHC 30.7 L, RDW 14.8, Plt Count 214, MPV 8.1, Neut % (Auto) 55.4, Lymph % (Auto) 35.6, [place] % (Auto) 5.1, Eos % (Auto) 2.4, Baso % (Auto) 1.5, Neut # (Auto) 5.2, Lymph # (Auto) 3.3, [place] # (Auto) 0.5, Eos # (Auto) 0.2, Baso # (Auto) 0.1 03/30/21 03:00: Sodium 140, Potassium 3.9, Chloride 99, Carbon Dioxide 31 H, Anion Gap 13.9, BUN 10, Creatinine 0.70, Estimated Creat Clear 235, Estimated GFR 107, Est GFR ( Amer) 129, Glucose 95, Calcium 9.7, Total Bilirubin 0.3, AST 36, ALT 24, Alkaline Phosphatase 115, Total Protein 8.1, Albumin 4.6, Globulin 3.5 H, Albumin/Globulin Ratio 1.3 Result diagrams: 03/30/21 03:00 03/30/21 03:00 Orders (Tests/Meds): ED MEDICATIONS Discontinued Medications Generic Name Dose Route Start Last Admin Trade Name Stef PRN Reason Stop Dose Admin Ketorolac Tromethamine 15 mg 03/30/21 03:11 03/30/21 03:16 Ketorolac 30mg/Ml Vial IV 03/30/21 03:12 15 mg ONCE ONE Administration Ondansetron HCl 4 mg 03/30/21 03:11 03/30/21 03:17 Ondansetron 4mg/2ml Vial IV 03/30/21 03:12 4 mg ONCE ONE Administration ORDERS Category Date Time Status Comprehensive Metabolic Panel Stat Lab 03/30/21 03:00 Results Iron and TIBC
[2021-03-30 02:36] VITALS: BP 164/111; PULSE 77; RESP 15; O2SAT 99
[2021-03-30 02:41] LABS: Microscopic, Urine URINE MICROSCOPIC (MICROSCOPIC)
[2021-03-30 02:43] LABS: Appearance,Urine SL CLOUDY (Clear); Bilirubin,Urine Negative (Negative); Blood, Urine Negative (Negative); Color,Urine STRAW (Yellow); Glucose,Urine (UA) Negative (Negative); Ketones,Urine Negative (Negative); Leukocyte Esterase,Urine Negative (Negative); Nitrate,Urine Negative (Negative); Protein,Urine Negative (Negative); Specific Gravity, Urine 1.015 (1.005-1.030); Urobilinogen,Urine 0.2 EU/dl (0.2)
[2021-03-30 02:45] LABS: Urine Pregnancy, HCG Qual. Negative (Negative)
[2021-03-30 02:52] LABS: Bacteria,Urine 1+ /lpf; WBC,Urine Occasional #/hpf (0-3)
[2021-03-30 03:14] LABS: Basophils # 0.1 K/mm3 (0-0.2); Basophils % 1.5 % (0.1-2.0); Eosinophils # 0.2 K/mm3 (0.0-0.4); Eosinophils % 2.4 % (0.1-12.0); Hematocrit 43.1 % (37.0-47.0); Hemoglobin 13.3 g/dL (12.2-16.2); Lymphocytes # 3.3 K/mm3 (0.7-4.5); Lymphocytes % 35.6 % (10-50); Mean Corpuscular HGB Conc 30.7 g/dL (31.8-35.4); Mean Corpuscular Hemoglobin 25.4 pg (27.0-31.2); Mean Corpuscular Volume 82.8 fl (81-99); Mean Platelet Volume 8.1 fl (7.4-10.4); Monocytes # 0.5 K/mm3 (0.1-1.0); Monocytes % 5.1 % (1.7-9.3); Neutrophils # 5.2 K/mm3 (1.8-7.8); Neutrophils % 55.4 % (37.0-80.0); Platelet Count 214 K/mm3 (142-424); Red Blood Count 5.21 M/mm3 (4.20-5.40); Red Cell Distribution Width 14.8 % (11.5-17.5); White Blood Count 9.3 K/mm3 (4.5-13.0)
[2021-03-30 03:15] LABS: Alanine Aminotransferase 24 U/L (12-78); Albumin Level 4.6 g/dl (3.5-5.0); Albumin/Globulin Ratio 1.3 (1.1-1.8); Alkaline Phosphatase 115 U/L (38-126); Anion Gap 13.9 mEq/L (5-15); Aspartate Amino Transferase 36 U/L (14-36); Bilirubin,Total 0.3 mg/dl (0.2-1.3); Blood Urea Nitrogen 10 mg/dl (7-17); Calcium 9.7 mg/dl (8.4-10.2); Carbon Dioxide 31 mmol/L (22.0-30.0); Chloride 99 mmol/L (98-107); Creatinine Clearance Estimated 235 mL/min (50-200); Estimated Glomerular Filt Rate 107 ml/min (>60); GFR (African American) 129 ML/MIN (>60); Globulin 3.5 g/dL (1.3-3.2); Glucose 95 mg/dl (74-100); Potassium 3.9 mmoL/L (3.5-5.1); Sodium 140 mmol/L (136-145); Total Protein,Serum 8.1 g/dl (6.3-8.2)
[2021-03-30 03:29] LABS: Iron 49 ug/dL (37-170)
[2021-03-30 03:31] LABS: Monoscreen (Rapid) Negative (Negative)
[2021-03-30 03:39] LABS: Total Iron Binding Capacity 493 ug/dL (265-497)
[2021-03-30 03:46] LABS: Thyroid Stimulating Hormone 5.56 uIU/mL (0.465-4.68)
[2021-03-30 03:49] VITALS: BP 153/99; PULSE 75; RESP 16; TEMP 37.1; O2SAT 98
== END 2021-03-30 03:51 | disposition home or self-care (01) ==
PROVIDERS: Emergency Provider Emergency Medicine; PCP Emergency Medicine
DX: G44.201 Tension-type headache, unspecified, intractable (principal); R53.83 Other fatigue; I10 Essential (primary) hypertension
CPT/HCPCS: 80053; 81001; 81025; 83540; 83550; 84443; 85025; 86318; 99282; J2405

== ENCOUNTER 2021-04-30 18:41 | Emergency (ER) | payer OTHER, SELFPAY ==
--- NOTE | 2021-04-30 19:39 | HMH.EDUTC ---
[facility] [place] Clinical Impression: Cellulitis Qualifiers: Site of cellulitis: extremity Site of cellulitis of extremity: upper extremity Laterality: left Qualified Code(s): L03.114 - Cellulitis of left upper limb Disposition: Home, Self-Care Condition on Discharge: Good Instructions: Cellulitis Additional Instructions: Apply warm wet compresses to the affected sites three or four times per day for 15 minutes as tolerated. Take the antibiotics as directed. Follow up with your regular doctor for a recheck of the area within 48 to 72 hours. GO TO THE ER FOR ANY WORSENING SYMPTOMS OR CONCERNS Prescriptions: Sulfamethoxazole/Trimethoprim [Bactrim DS tablet] 1 each PO BID 10 Days #20 tab Transmission Status: Received by [facility] cephALEXin [cephALEXin 500mg capsule] 500 mg PO Q6H 10 Days #40 cap [facility] Referrals: Augustine Lott MD [Primary Care Provider] - Time of Disposition: 20:06 Medical Decision Making - Medical Records Medical records reviewed: No: I reviewed the patient's medical records. - Dariusz Inquiry Pt receiving controlled substance: No Vital Signs: 04/30/21 19:47 04/30/21 20:18 Temperature 98.4 F 98.4 F Temperature Source Oral Pulse Rate 73 Pulse Rate [Left] 73 Respiratory Rate 18 18 Blood Pressure 150/97 H Blood Pressure [Right Arm] 150/97 H Blood Pressure Mean [Right Arm] 114 02 Sat by Pulse Oximetry 100 [facility] [place] - General Stated complaint: possible infection of tattoo on arm Time Seen by Provider: 04/30/21 19:39 - History of Present Illness Provider Complaint: She states that she got a tattoo on her left arm 3 days ago. She is afraid it is trying to get infected. She states that there have been small blisters in the tattooed area. She denies redness or warmth at the site. She denies any fever or chills. She is not diabetic. - Related Data Previous Rx's Medication Instructions Recorded propranolol 80 mg capsule,24 80 mg PO DAILY #30 cap 12/18/20 hr,extended release Ondansetron [Zofran 4mg ODT] 4 mg PO TIDP PRN #6 tab 01/29/21 Butalb/Acetaminophen/Caffeine 1 each PO Q8H PRN #12 tab 03/30/21 [Fiorcet Tablet] No122/Iron/Folic Acid 1 each PO DAILY #30 tab 03/30/21 [ Multi Tablet] clomiphene citrate 50 mg tablet 100 mg PO DAILY 5 Days #10 tab 04/01/21 trazodone 50 mg tablet 50 mg PO QHS PRN #30 tab 04/23/21 Sulfamethoxazole/Trimethoprim 1 each PO BID 10 Days #20 tab 04/30/21 [Bactrim DS tablet] cephALEXin [cephALEXin 500mg 500 mg PO Q6H 10 Days #40 cap 04/30/21 capsule] Allergies Allergy/AdvReac Type Severity Reaction Status Date / Time No Known Allergies Allergy Verified 04/23/21 11:01 [facility] History - Hepatitis A Screen Attestation statement:: This patient has been screened for Hepatitis A risk factors. I have reviewed the patient's past medical history: Yes Medical History: Reports:: Hypertension, Migraine Denies:: Diabetes Mellitus Type 1, Diabetes Mellitus Type 2 Other Medical History: Reports: Anemia Other Surgeries: Yes: No Previous Surgery Amputation: No Fractures: No - Social History Smoking Status: Never smoker Tobacco Type: cigarettes # Packs/Day (cigarettes): 0 Alcohol Intake: never Alcohol Intake Frequency:: holidays/special occasions only Substance Use Type: denies use Occupational Status: other Housing: house Household Members: significant other Family Hx:: Diabetes, Hypertension ROS Obtained: Yes All systems reviewed & no additional complaints - Constitutional Constitutional: Denies chills, Denies fever(s) - Eyes Eyes: Denies eye discharge - Musculoskeletal Musculoskeletal: Denies joint pain - Integumentary/Breasts Skin/Breast: Reports as per HPI Physical Exam - General General appearance: alert, in no apparent distress - Head Head exam: atraumatic, normocephalic, normal inspection - Eye Eye exam: Pres
[2021-04-30 19:47] VITALS: BP 150/97; PULSE 73; RESP 18; TEMP 36.9; O2SAT 100; BMI 42.9
[2021-04-30 20:18] VITALS: BP 150/97; PULSE 73; RESP 18; TEMP 36.9
== END 2021-04-30 20:18 | disposition home or self-care (01) ==
PROVIDERS: Emergency Provider Nurse Practitioner Family; PCP Emergency Medicine
DX: L03.114 Cellulitis of left upper limb (principal); I10 Essential (primary) hypertension
CPT/HCPCS: 99202; G0463

== ENCOUNTER → 2021-05-02 14:02 | Outpatient (CLI) | payer OTHER, SELFPAY | PROVIDERS: Visit Provider Nurse Practitioner | DX: Z20.822 Contact with and (suspected) exposure to COVID-19 (principal) | CPT/HCPCS: C9803; U0003; U0005 ==

== ENCOUNTER 2021-05-20 17:39 | Emergency (ER) | payer OTHER, SELFPAY ==
[2021-05-20 18:54] LABS: UTC Strep Screen (Rapid) Positive (Negative)
[2021-05-20 19:01] VITALS: BP 160/106; PULSE 82; RESP 16; TEMP 36.8; O2SAT 99; BMI 42.0
--- NOTE | 2021-05-20 19:12 | HMH.EDUTC ---
[facility] [place] Clinical Impression: Strep throat Disposition: Home, Self-Care Condition on Discharge: Good Instructions: Strep Throat, DI for Strep Throat Additional Instructions: Drink plenty of fluids. Take tylenol or ibuprofen for pain or fever. Take the medications as directed. Follow up with your regular doctor. GO TO THE ER FOR ANY WORSENING SYMPTOMS Throw your tooth brush away and get a new one. Prescriptions: Amoxicillin/Potassium Clav [Augmentin 875-125 Tablet] 1 tab PO Q12H 10 Days #20 tab Transmission Status: Received by [facility] methylPREDNISolone [Medrol] 4 mg PO DIRECTED 6 Days #21 packet Transmission Status: Received by [id number] Referrals: Augustine Lott MD [Primary Care Provider] - Beverly Castro MD [Consulting Physician] - Forms: Work/School Release Time of Disposition: 19:42 Medical Decision Making - Medical Records Medical records reviewed: No: I reviewed the patient's medical records. - Dariusz Inquiry Pt receiving controlled substance: No Vital Signs: 05/20/21 19:01 Temperature 98.3 F Temperature Source Oral Pulse Rate [Left] 82 Respiratory Rate 16 Blood Pressure [Right Arm] 160/106 H Blood Pressure Mean [Right Arm] 124 02 Sat by Pulse Oximetry 99 - Lab Data Lab results reviewed: Yes: I reviewed the patient's lab results. Lab Results 05/20/21 18:46: Strep Scn Rapid Clinic Positive A [facility] [place] HPI - General Stated complaint: sore throat,cough,FORRESTER,congestion Time Seen by Provider: 05/20/21 19:12 Mode of Arrival: Ambulatory Source of Information: Patient Limitations: No Limitations Description of Symptoms (Recalled from Triage Doc. by RN): pt c/o fever, congestion and a sore throat. x2 days. HEENT Symptoms (Recalled from RN notes): Yes (congestion and sore throat) Resp Symptoms (Recalled from RN notes): No Skin Symptoms (Recalled from RN notes): No MS Symptoms (Recalled from RN notes): No Functional Status (Recalled from RN notes): wnl - History of Present Illness Provider Complaint: She c/o sore throat, fever and feeling bad for the past 2 days. She gets strep throat very frequently and thats what she feels like she has now. - Related Data Previous Rx's Medication Instructions Recorded propranolol 80 mg capsule,24 80 mg PO DAILY #30 cap 12/18/20 hr,extended release Ondansetron [Zofran 4mg ODT] 4 mg PO TIDP PRN #6 tab 01/29/21 Butalb/Acetaminophen/Caffeine 1 each PO Q8H PRN #12 tab 03/30/21 [Fiorcet Tablet] No122/Iron/Folic Acid 1 each PO DAILY #30 tab 03/30/21 [ Multi Tablet] clomiphene citrate 50 mg tablet 100 mg PO DAILY 5 Days #10 tab 04/01/21 trazodone 50 mg tablet 50 mg PO QHS PRN #30 tab 04/23/21 Sulfamethoxazole/Trimethoprim 1 each PO BID 10 Days #20 tab 04/30/21 [Bactrim DS tablet] cephALEXin [cephALEXin 500mg 500 mg PO Q6H 10 Days #40 cap 04/30/21 capsule] Amoxicillin/Potassium Clav 1 tab PO Q12H 10 Days #20 tab 05/20/21 [Augmentin 875-125 Tablet] methylPREDNISolone [Medrol] 4 mg PO DIRECTED 6 Days #21 05/20/21 packet Allergies Allergy/AdvReac Type Severity Reaction Status Date / Time No Known Allergies Allergy Verified 04/23/21 11:01 - Worker's Comp Is this a Worker's Comp case?: No [facility] History - Hepatitis A Screen Drug use history?: No High risk sexual behaviors?: No History of sexually transmitted infection?: No Currently employed?: No Childcare worker?: No Do you have indoor plumbing?: Yes Do you have electricity?: Yes Attestation statement:: This patient has been screened for Hepatitis A risk factors. I have reviewed the patient's past medical history: Yes Medical History: Reports:: Hypertension, Migraine Denies:: Diabetes Mellitus Type 1, Diabetes Mellitus Type 2 Other Medical History: Reports: Anemia Other Surgeries: Yes: No Previous Surgery Amputation: No Fractures: No - Social History Smoking Status: Never smoker Tobacco T
[2021-05-20 19:44] VITALS: BP 160/106; PULSE 82; RESP 16; TEMP 36.8
== END 2021-05-20 19:51 | disposition home or self-care (01) ==
PROVIDERS: Emergency Provider Nurse Practitioner Family; PCP Emergency Medicine
DX: J02.0 Streptococcal pharyngitis (principal); I10 Essential (primary) hypertension
CPT/HCPCS: 87880; 99202; G0463

== ENCOUNTER 2021-05-22 21:41 | Emergency (ER) | payer OTHER, SELFPAY ==
--- NOTE | 2021-05-22 21:26 | ECG_ITS ---
APPROVED REPORT Exam: Resting ECG HR:90 bpm ECG Measurements Heart Rate 90 AXES SD 136 P 43 QRSd 82 QRS -9 QT 356 T -1 QTc 435 Conclusion Normal sinus rhythm with sinus arrhythmia Minimal voltage criteria for LVH, may be normal variant Borderline ECG Electronically signed by : David Cruz MD 05/24/2021 06:19:22
[2021-05-22 21:42] VITALS: BP 143/102; PULSE 100; RESP 16; TEMP 36.9; O2SAT 98; BMI 42.0
--- NOTE | 2021-05-22 21:51 | HMH.EDCP ---
ED Disposition Clinical Impression: Pleurisy Disposition: Home, Self-Care Condition on Discharge: Good Instructions: DI for Atypical Chest Pain Additional Instructions: will ask pt to see pcp next week - use meds as directed Prescriptions: predniSONE [Prednisone 20mg Tab] 20 mg PO BID #10 tab Transmission Status: Pending to [id number] Referrals: Augustine Lott MD [Primary Care Provider] - - Critical Care Critical Care Time: No Attestation: On 05/22/21, the high probability of a clinically significant, sudden or life threatening deterioration of the following system(s) required my full and direct attention, intervention and personal management. The time I documented below is in addition to time spent performing reported procedures but includes the following listed in this critical care notation. Medical Decision Making - Medical Records Medical records reviewed: Yes: I reviewed the patient's medical records. - Dariusz Inquiry Pt receiving controlled substance: No Vital Signs: 05/22/21 21:42 05/22/21 22:00 05/22/21 22:45 Temperature 98.5 F Temperature Source Oral Pulse Rate 86 98 H Pulse Rate [Left Radial] 100 H Respiratory Rate 16 27 H 20 Blood Pressure 132/98 H 148/86 H Blood Pressure [Right Arm] 143/102 H Blood Pressure Mean [Right Arm] 115 02 Sat by Pulse Oximetry 98 98 97 Oxygen Delivery Method Room Air Room Air Room Air 05/22/21 23:01 Temperature Temperature Source Pulse Rate 90 Pulse Rate [Left Radial] Respiratory Rate 23 Blood Pressure 143/86 H Blood Pressure [Right Arm] Blood Pressure Mean [Right Arm] 02 Sat by Pulse Oximetry 96 Oxygen Delivery Method Room Air - Lab Data Lab results reviewed: Yes: I reviewed the patient's lab results. Lab Results 05/22/21 21:45: WBC 9.8, RBC 5.11, Hgb 13.2, Hct 39.8, MCV 77.9 L, MCH 25.8 L, MCHC 33.1, RDW 14.7, Plt Count 253, MPV 11.0 H, Neut % (Auto) 83.0 H, Lymph % (Auto) 13.4, [place] % (Auto) 1.8, Eos % (Auto) 1.2, Baso % (Auto) 0.7, Neut # (Auto) 8.1 H, Lymph # (Auto) 1.3, [place] # (Auto) 0.2, Eos # (Auto) 0.1, Baso # (Auto) 0.1 05/22/21 21:45: Sodium 139, Potassium 4.2, Chloride 101, Carbon Dioxide 26, Anion Gap 16.2 H, BUN 15, Creatinine 0.80, Estimated Creat Clear 97, Estimated GFR 91, Est GFR ( Amer) 111, Glucose 178 H, Calcium 9.9, Troponin I < 0.01 05/22/21 21:58: Urine Color Yellow, Urine Appearance Clear, Urine pH 7.0, Ur Specific [place] 1.020, Urine Protein 1+, Urine Glucose (UA) Trace, Urine Ketones Negative, Urine Blood Negative, Urine Nitrate Negative, Urine Bilirubin Negative, Urine Urobilinogen 0.2, Ur Leukocyte Esterase Negative, Urine RBC None, Urine WBC None, Ur Squamous Epith Cells None, Urine Bacteria None 05/22/21 21:58: Urine HCG, Qual Negative Result diagrams: 05/22/21 21:45 05/22/21 21:45 Orders (Tests/Meds): ED MEDICATIONS Generic Name Dose Route Start Last Admin Trade Name Freq PRN Reason Stop Dose Admin Sodium Chloride 1,000 mls @ 999 mls/hr 05/22/21 22:00 05/22/21 22:23 Sod Chlor 0.9% 1000ml Bag IV 05/22/21 23:00 999 mls/hr .Q1H1M SYBIL Administration Discontinued Medications Generic Name Dose Route Start Last Admin Trade Name Freq PRN Reason Stop Dose Admin Aspirin 324 mg 05/22/21 21:53 05/22/21 22:23 Aspirin 81mg Chewable Tablet PO 05/22/21 21:54 324 mg ONCE ONE Administration Iopamidol 70 ml 05/22/21 22:42 05/22/21 22:44 Iopamidol-370 (76%);100ml Bottle IV 05/22/21 22:43 70 ml ONCE ONE Administration Sodium Chloride 50 ml 05/22/21 22:42 05/22/21 22:44 0.9 % Sodium Chloride 50 Ml Vial IV 05/22/21 22:43 50 ml ONCE ONE Administration Sodium Chloride 10 ml 05/22/21 22:42 05/22/21 22:44 Sodium Chloride 0.9% 10ml Syr (Rad Only) IV 05/22/21 22:43 10 ml ONCE ONE Administration ORDERS Category Date Time Status Troponin I Q3H Lab 05/23/21 01:00 Ordered Troponin I Q3H Lab 05/23/21 04:00 Ordered - R
--- NOTE | 2021-05-22 21:53 | XR_ITS ---
PROCEDURE INFORMATION: Exam: XR Chest Exam date and time: 05/22/2021 9:53 PM Age: 20 years old Clinical indication: Sternal or substernal pain; Patient HX: Chest pain TECHNIQUE: Imaging protocol: XR of the chest. Views: 2 views. COMPARISON: CR XR CHEST PORTABLE 12/16/2020 4:45 PM FINDINGS: Lungs: Unremarkable. No consolidation. Pleural spaces: Unremarkable. No pleural effusion. No pneumothorax. Heart/Mediastinum: Unremarkable. No cardiomegaly. Bones/joints: Unremarkable. IMPRESSION: No acute findings.
[2021-05-22 22:00] VITALS: BP 132/98; PULSE 86; RESP 27; O2SAT 98
[2021-05-22 22:08] LABS: Chloride 101 mmol/L (98-107); Potassium 4.2 mmoL/L (3.5-5.1); Sodium 139 mmol/L (136-145)
[2021-05-22 22:10] LABS: Basophils # 0.1 K/mm3 (0-0.2); Basophils % 0.7 % (0.1-2.0); Eosinophils # 0.1 K/mm3 (0.0-0.4); Eosinophils % 1.2 % (0.1-12.0); Hematocrit 39.8 % (37.0-47.0); Hemoglobin 13.2 g/dL (12.2-16.2); Lymphocytes # 1.3 K/mm3 (0.7-4.5); Lymphocytes % 13.4 % (10-50); Mean Corpuscular HGB Conc 33.1 g/dL (31.8-35.4); Mean Corpuscular Hemoglobin 25.8 pg (27.0-31.2); Mean Corpuscular Volume 77.9 fl (81-99); Monocytes # 0.2 K/mm3 (0.1-1.0); Monocytes % 1.8 % (1.7-9.3); Neutrophils # 8.1 K/mm3 (1.8-7.8); Platelet Count 253 K/mm3 (142-424); Red Blood Count 5.11 M/mm3 (4.20-5.40); Red Cell Distribution Width 14.7 % (11.5-17.5); White Blood Count 9.8 K/mm3 (4.5-13.0)
[2021-05-22 22:10] LABS: Microscopic, Urine URINE MICROSCOPIC (MICROSCOPIC)
[2021-05-22 22:11] LABS: Anion Gap 16.2 mEq/L (5-15); Blood Urea Nitrogen 15 mg/dl (7-17); Carbon Dioxide 26 mmol/L (22.0-30.0); Creatinine Clearance Estimated 97 mL/min (50-200); Estimated Glomerular Filt Rate 91 ml/min (>60); GFR (African American) 111 ML/MIN (>60)
[2021-05-22 22:12] LABS: Calcium 9.9 mg/dl (8.4-10.2); Glucose 178 mg/dl (74-100)
[2021-05-22 22:12] LABS: Appearance,Urine CLEAR (Clear); Bilirubin,Urine Negative (Negative); Blood, Urine Negative (Negative); Color,Urine YELLOW (Yellow); Glucose,Urine (UA) TRACE (Negative); Ketones,Urine Negative (Negative); Leukocyte Esterase,Urine Negative (Negative); Nitrate,Urine Negative (Negative); Protein,Urine 1+ (Negative); Urobilinogen,Urine 0.2 EU/dl (0.2)
--- NOTE | 2021-05-22 22:14 | CT_ITS ---
PROCEDURE INFORMATION: Exam: CTA Chest With Contrast Exam date and time: 05/22/2021 10:14 PM Age: 20 years old Clinical indication: Sternal or substernal pain; Additional info: SOB TECHNIQUE: Imaging protocol: Computed tomographic angiography of the chest with contrast. 3D rendering (Not supervised by radiologist): MIP and/or 3D reconstructed images were created by the technologist. Radiation optimization: All CT scans at this facility use at least one of these dose optimization techniques: automated exposure control; mA and/or kV adjustment per patient size (includes targeted exams where dose is matched to clinical indication); or iterative reconstruction. Contrast material: ISOVUE; Contrast volume: 75 ml; Contrast route: INTRAVENOUS (IV); COMPARISON: CR XR CHEST 2V 05/22/2021 10:18 PM FINDINGS: Pulmonary arteries: Normal. No pulmonary emboli to the proximal segmental level in most cases. Aorta: Unremarkable. No aortic aneurysm. No aortic dissection. Lungs: Unremarkable. No consolidation. No masses. Pleural spaces: Unremarkable. No pneumothorax. No pleural effusion. Heart: Unremarkable. No cardiomegaly. No pericardial effusion. Lymph nodes: Unremarkable. No enlarged lymph nodes. Bones/joints: Unremarkable. No acute fracture. Soft tissues: Unremarkable. IMPRESSION: No acute findings.
[2021-05-22 22:17] LABS: Urine Pregnancy, HCG Qual. Negative (Negative)
[2021-05-22 22:24] LABS: Troponin I < 0.01 ng/ml (0.00-0.034)
[2021-05-22 22:45] VITALS: BP 148/86; PULSE 98; RESP 20; O2SAT 97
[2021-05-22 23:01] VITALS: BP 143/86; PULSE 90; RESP 23; O2SAT 96
[2021-05-22 23:53] VITALS: BP 147/93; PULSE 93; RESP 14; TEMP 36.8; O2SAT 98
== END 2021-05-23 00:04 | disposition home or self-care (01) ==
PROVIDERS: Emergency Provider Emergency Medicine; PCP Emergency Medicine
DX: R09.1 Pleurisy (principal); R07.9 Chest pain, unspecified; J02.0 Streptococcal pharyngitis
CPT/HCPCS: 71046; 71275; 80048; 81001; 81025; 84484; 85025; 93005; 96365; 96375; 99283; Q9967

== ENCOUNTER 2021-07-12 21:49 | Emergency (ER) | payer OTHER, SELFPAY ==
[2021-07-12 21:50] VITALS: BP 157/95; PULSE 89; RESP 19; TEMP 36.9; O2SAT 99; BMI 42.9
--- NOTE | 2021-07-12 22:13 | XR_ITS ---
PROCEDURE INFORMATION: Exam: XR Right Shoulder Exam date and time: 07/12/2021 10:13 PM Age: 21 years old Clinical indication: Pain; Shoulder; Right; Additional info: 2 wk pain with movement TECHNIQUE: Imaging protocol: XR Right shoulder. Views: 2 or more views. COMPARISON: CR XR CHEST 2V 05/22/2021 10:18 PM FINDINGS: Bones/joints: Narrowing of the subacromial space on a single view. No acute fracture. If there is concern for dislocation, axillary or scapular Y-views are recommended. Soft tissues: Normal. IMPRESSION: Narrowing of the subacromial space on a single view which may be positional however can be seen with rotator cuff pathology.
--- NOTE | 2021-07-12 22:13 | XR_ITS ---
PROCEDURE INFORMATION: Exam: XR Lumbosacral Spine Exam date and time: 07/12/2021 10:13 PM Age: 21 years old Clinical indication: Low back pain; Additional info: Low back pain, no injury TECHNIQUE: Imaging protocol: XR of the lumbosacral spine. Views: 4 or 5 views. COMPARISON: CT ABDOMEN PELVIS W CON 04/27/2020 1:01 PM FINDINGS: Bones/joints: Normal. No acute fracture. Normal alignment. Soft tissues: Unremarkable. IMPRESSION: No acute findings.
--- NOTE | 2021-07-12 22:17 | HMH.EDGENADL ---
ED Disposition Clinical Impression: Strain of shoulder, right Qualifiers: Encounter type: initial encounter Qualified Code(s): S46.911A - Strain of unspecified muscle, fascia and tendon at shoulder and upper arm level, right arm, initial encounter Acute lumbar myofascial strain Qualifiers: Encounter type: initial encounter Qualified Code(s): S39.012A - Strain of muscle, fascia and tendon of lower back, initial encounter Disposition: Home, Self-Care Condition on Discharge: Good Instructions: DI for Low Back Pain Additional Instructions: use meds and see pcp for follow up next week Prescriptions: Meloxicam [Mobic 15 mg tab] 15 mg PO DAILY #7 tab Transmission Status: Pending to [id number] Referrals: Augustine Lott MD [Primary Care Provider] - - Critical Care Critical Care Time: No Attestation: On 07/12/21, the high probability of a clinically significant, sudden or life threatening deterioration of the following system(s) required my full and direct attention, intervention and personal management. The time I documented below is in addition to time spent performing reported procedures but includes the following listed in this critical care notation. Medical Decision Making - Medical Records Medical records reviewed: Yes: I reviewed the patient's medical records. - Dariusz Inquiry Pt receiving controlled substance: No Vital Signs: 07/12/21 21:50 Temperature 98.4 F Temperature Source Oral Pulse Rate [Right] 89 Respiratory Rate 19 Blood Pressure [Right Arm] 157/95 H Blood Pressure Mean [Right Arm] 115 Blood Pressure Source [Right Arm] Automatic Cuff 02 Sat by Pulse Oximetry 99 Oxygen Delivery Method Room Air - Lab Data Lab results reviewed: Yes: I reviewed the patient's lab results. Lab Results 07/12/21 22:15: Urine Color Straw, Urine Appearance Sl cloudy, Urine pH 5.5, Ur Specific [place] 1.010, Urine Protein Negative, Urine Glucose (UA) Negative, Urine Ketones Negative, Urine Blood Negative, Urine Nitrate Negative, Urine Bilirubin Negative, Urine Urobilinogen 0.2, Ur Leukocyte Esterase Negative, Urine WBC Occasional, Ur Squamous Epith Cells 3-5, Urine Bacteria 1+ 07/12/21 22:15: Urine HCG, Qual Negative Orders (Tests/Meds): ORDERS Category Date Time Status XR lumbar spine min 4V Stat Exams 07/12/21 22:13 Taken XR shoulder RT min 2V Stat Exams 07/12/21 22:13 Taken - Radiology Data #1 Image(s): L-Spine, Shoulder Image Reviewed: Yes I reviewed the patient's radiology image, Yes I have reviewed radiologist's interpretation Preliminary Findings: No Fracture Seen Medical Decision Narrative: will treat as m/s pain and ask pt to see pcp for follow up and therapy General Adult HPI - General Chief complaint: PAIN Stated complaint: R shoulder pain, lower back pain Time Seen by Provider: 07/12/21 22:17 Mode of Arrival: Family Vehicle Source of Information: Patient, Medical Record Limitations: No Limitations Description of Symptoms (Recalled from ER Triage Doc. by RN): Pt c/o R shoulder pain that extends from the tip of shoulder to base of neck. This pain has been present for about 2 wk. She reports pain with movement. [employer] and radial pulses are wnl. Pt also c/o pain to midline low back. Denies any recent injury or trauma, although states I have a 100lb great mercedes that pulls alot and might be why my shoulder hurts . Denies n/v/d, fever, chills, or urinary difficulty. - History of Present Illness HPI narrative: atraumatic pain back and rt shoulder over the last week w/o fever/rash or trauma and no gu sx Onset (ago): week(s) Location: back, upper extremity Severity: moderate Consistency: intermittent Associated symptoms: denies other symptoms Treatments prior to arrival: none - Related Data Previous Rx's Medication Instructions Recorded propranolol 80 mg capsule,24 80 mg PO DAILY #30 cap 12/18/ hr,extended release No122/Iron/Folic Acid 1 each P
[2021-07-12 22:22] LABS: Microscopic, Urine URINE MICROSCOPIC (MICROSCOPIC)
[2021-07-12 22:24] LABS: Appearance,Urine SL CLOUDY (Clear); Bilirubin,Urine Negative (Negative); Blood, Urine Negative (Negative); Color,Urine STRAW (Yellow); Glucose,Urine (UA) Negative (Negative); Ketones,Urine Negative (Negative); Leukocyte Esterase,Urine Negative (Negative); Nitrate,Urine Negative (Negative); PH,Urine 5.5 (5.0-8.5); Protein,Urine Negative (Negative); Urobilinogen,Urine 0.2 EU/dl (0.2)
[2021-07-12 22:25] LABS: Urine Pregnancy, HCG Qual. Negative (Negative)
[2021-07-12 22:31] LABS: Bacteria,Urine 1+ /lpf; WBC,Urine Occasional #/hpf (0-3)
[2021-07-12 23:01] VITALS: BP 150/90; PULSE 78; RESP 20; TEMP 37.1; O2SAT 99
== END 2021-07-12 23:09 | disposition home or self-care (01) ==
PROVIDERS: Emergency Provider Emergency Medicine; PCP Emergency Medicine
DX: S46.911A Strain of unspecified muscle, fascia and tendon at shoulder and upper arm level, right arm, initial encounter (principal); S39.012A Strain of muscle, fascia and tendon of lower back, initial encounter; I10 Essential (primary) hypertension
CPT/HCPCS: 72110; 73030; 81001; 81025; 99282

== ENCOUNTER 2021-12-11 14:49 | Emergency (ER) | payer OTHER, SELFPAY ==
[2021-12-11] VITALS (7 sets, daily range): BP systolic 134–173; BP diastolic 94–110; PULSE 61–77; RESP 18; TEMP 37.2; O2SAT 96–100; BMI 44.6
--- NOTE | 2021-12-11 14:46 | ECG_ITS ---
APPROVED REPORT Exam: Resting ECG HR:68 bpm ECG Measurements Heart Rate 68 AXES ME 141 P 35 QRSd 90 QRS -9 QT 405 T -23 QTc 423 Conclusion SINUS RHYTHM MINIMAL VOLTAGE CRITERIA FOR LVH, CONSIDER NORMAL VARIANT [MEETS CRITERIA IN ONE OF: R(aVL), S(V1), R(V5), R(V5/V6)+S(V1)] BORDERLINE ECG UNCONFIRMED REPORT Electronically signed by : David Cruz MD 12/15/2021 14:11:46
--- NOTE | 2021-12-11 14:58 | XR_ITS ---
FINAL REPORT CLINICAL HISTORY: CHEST PAIN X 2 DAYS, sternal pain COMPARISON: May 22, 2021 FINDINGS: A single portable view of the chest was obtained. The heart size and pulmonary vascularity are within normal limits. The mediastinum is within normal limits. There is mild right lung base opacity, atelectasis or pneumonia. The bony thorax is intact. IMPRESSION: Mild right lung base atelectasis or pneumonia. Reviewed, Interpreted and Dictated by Boby Mcmahon III, MD Transcribed by Kate Sethi Authenticated and [facility]
[2021-12-11 15:11] LABS: Chloride 102 mmol/L (98-107); Sodium 138 mmol/L (136-145)
[2021-12-11 15:14] LABS: Blood Urea Nitrogen 7 mg/dl (7-17); Calcium 9.4 mg/dl (8.4-10.2); Carbon Dioxide 29 mmol/L (22.0-30.0); Creatinine Clearance Estimated 110 mL/min (50-200); Estimated Glomerular Filt Rate 106 ml/min (>60); GFR (African American) 128 ML/MIN (>60); Glucose 105 mg/dl (74-100)
[2021-12-11 15:19] LABS: Basophils # 0.2 K/mm3 (0-0.2); Basophils % 2.5 % (0.1-2.0); Eosinophils # 0.2 K/mm3 (0.0-0.4); Eosinophils % 2.9 % (0.1-12.0); Hematocrit 36.4 % (37.0-47.0); Hemoglobin 11.3 g/dL (12.2-16.2); Lymphocytes # 1.9 K/mm3 (0.7-4.5); Lymphocytes % 31.5 % (10-50); Mean Corpuscular HGB Conc 31.1 g/dL (31.8-35.4); Mean Corpuscular Hemoglobin 22.6 pg (27.0-31.2); Mean Corpuscular Volume 72.8 fl (81-99); Mean Platelet Volume 10.8 fl (7.4-10.4); Monocytes # 0.3 K/mm3 (0.1-1.0); Monocytes % 5.7 % (1.7-9.3); Neutrophils # 3.4 K/mm3 (1.8-7.8); Neutrophils % 57.4 % (37.0-80.0); Platelet Count 278 K/mm3 (142-424); Red Cell Distribution Width 16.9 % (11.5-17.5)
--- NOTE | 2021-12-11 15:24 | [facility].EDCP ---
ED Disposition Clinical Impression: Atypical chest pain Disposition: Home, Self-Care Condition on Discharge: Good Instructions: DI for Atypical Chest Pain Additional Instructions: see pcp for follow up Referrals: Augustine Lott MD [Primary Care Provider] - - Critical Care Critical Care Time: No Attestation: On 12/11/21, the high probability of a clinically significant, sudden or life threatening deterioration of the following system(s) required my full and direct attention, intervention and personal management. The time I documented below is in addition to time spent performing reported procedures but includes the following listed in this critical care notation. Medical Decision Making - Medical Records Medical records reviewed: Yes: I reviewed the patient's medical records. - Dariusz Inquiry Pt receiving controlled substance: No Vital Signs: 12/11/21 14:49 12/11/21 14:50 12/11/21 15:10 Temperature 99.0 F Temperature Source Oral Pulse Rate 69 77 Pulse Rate [Left Radial] 67 Respiratory Rate 18 18 18 Blood Pressure 158/100 H 134/96 H Blood Pressure [Right Arm] 173/110 H Blood Pressure Mean Blood Pressure Mean [Right Arm] 131 Blood Pressure Source [Right Arm] Automatic Cuff Blood Pressure Position [Right Arm] Sitting 02 Sat by Pulse Oximetry 99 99 99 Oxygen Delivery Method Room Air Room Air 12/11/21 15:31 12/11/21 16:01 12/11/21 16:31 Temperature Temperature Source Pulse Rate 76 67 72 Pulse Rate [Left Radial] Respiratory Rate 18 18 18 Blood Pressure 138/94 H 144/102 H 141/99 H Blood Pressure [Right Arm] Blood Pressure Mean 104 114 109 Blood Pressure Mean [Right Arm] Blood Pressure Source [Right Arm] Blood Pressure Position [Right Arm] 02 Sat by Pulse Oximetry 99 96 98 Oxygen Delivery Method - Lab Data Lab results reviewed: Yes: I reviewed the patient's lab results. Lab Results 12/11/21 14:55: WBC 6.0, RBC 5.00, Hgb 11.3 L, Hct 36.4 L, MCV 72.8 L, MCH 22.6 L, MCHC 31.1 L, RDW 16.9, Plt Count 278, MPV 10.8 H, Neut % (Auto) 57.4, Lymph % (Auto) 31.5, [place] % (Auto) 5.7, Eos % (Auto) 2.9, Baso % (Auto) 2.5 H, Neut # (Auto) 3.4, Lymph # (Auto) 1.9, [place] # (Auto) 0.3, Eos # (Auto) 0.2, Baso # (Auto) 0.2 12/11/21 14:55: Sodium 138, Potassium 4.0, Chloride 102, Carbon Dioxide 29, Anion Gap 11.0, BUN 7, Creatinine 0.70, Estimated Creat Clear 110, Estimated GFR 106, Est GFR ( Amer) 128, Glucose 105 H, Calcium 9.4, Troponin I < 0.01 12/11/21 14:55: Total Bilirubin 0.3, Direct Bilirubin 0.1, Conjugated Bilirubin 0.0, Indirect Bilirubin 0.2, Unconjugated Bilirubin 0.3, AST 33, ALT 20, Alkaline Phosphatase 129 H, Total Protein 7.1, Albumin 4.3 12/11/21 14:55: Lipase 240 Result diagrams: 12/11/21 14:55 12/11/21 14:55 Orders (Tests/Meds): ED MEDICATIONS Generic Name Dose Route Start Last Admin Trade Name Freq PRN Reason Stop Dose Admin Sodium Chloride 10 ml 12/11/21 14:58 Sodium Chloride 0.9% 10ml Flush Syringe IV 01/10/22 14:57 NEEDED PRN Maintain IV Site ORDERS Category Date Time Status Hemoglobin A1C Stat Lab 12/11/21 14:55 Received Troponin I Q3H Lab 12/11/21 18:00 Ordered Troponin I Q3H Lab 12/11/21 21:00 Ordered - Radiology Data #1 Image(s): Chest Image Reviewed: Yes I have reviewed radiologist's interpretation Preliminary Findings: Abnormal (nonspecific ) - ECG Data Tracing #1 Normal Sinus Rhythm: Yes Ischemic changes: non-specific ST-T wave changes, t wave inversions Medical Decision Narrative: has atypical chest pain with stable labs and xrays - will need eval as out pt Chest Pain HPI - General Chief Complaint: Chest Pain Stated Complaint: chest pain Time Seen by Provider: 12/11/21 15:05 Mode of Arrival: Ambulatory Source of Information: Patient, Medical Record Limitations: No Limitations Description of Symptoms (Recalled from ER Triage Doc. by RN): c/o center chest pain fo
[2021-12-11 15:32] LABS: Troponin I < 0.01 ng/ml (0.00-0.034)
[2021-12-11 16:29] LABS: Alanine Aminotransferase 20 U/L (12-78); Alkaline Phosphatase 129 U/L (38-126); Aspartate Amino Transferase 33 U/L (14-36); Bilirubin,Direct 0.1 mg/dl (0.0-0.4); Bilirubin,Indirect 0.2 mg/dL (0.0-0.9); Bilirubin,Total 0.3 mg/dl (0.2-1.3); Bilirubin,Unconjugated 0.3 mg/dL (0.0-1.1); Lipase 240 U/L (23-300)
[2021-12-11 16:30] LABS: Albumin Level 4.3 g/dl (3.5-5.0); Total Protein,Serum 7.1 g/dl (6.3-8.2)
[2021-12-11 16:54] LABS: Hemoglobin A1C 5.2 % (4.0-6.0)
== END 2021-12-11 16:59 | disposition home or self-care (01) ==
PROVIDERS: Emergency Provider Emergency Medicine; PCP Emergency Medicine
DX: R07.89 Other chest pain (principal)
CPT/HCPCS: 71045; 80048; 80076; 83036; 83690; 84484; 85025; 93005; 99283

== ENCOUNTER → 2021-12-31 03:56 | Outpatient (CLI) | payer OTHER, SELFPAY ==
[2021-12-31 04:24] LABS: Influenza A, PCR Not Detected (NotDetected); Influenza B, PCR Not Detected (NotDetected)
[2021-12-31 06:06] LABS: Coronavirus 19, PCR Detected (NotDetected)
== END ==
PROVIDERS: PCP Emergency Medicine; Visit Provider Emergency Medicine
DX: U07.1 COVID-19 (principal)
CPT/HCPCS: C9803; U0003; U0005